=== PATIENT | female | born 1970 | race Caucasian/White ===

== ENCOUNTER 2017-01-11 11:19 | Emergency (ER) | payer MEDICAID ==
--- NOTE | 2017-01-11 14:38 | ED Physician Documentation ---
PD HPI NVD - Stated complaint Stated Complaint: VOMITING - Chief complaint Chief Complaint: Abd Pain - History obtained from History obtained from: Patient - History of Present Illness Timing - onset: Today (this morning, initially overnight with nausea and vomiting, and with some abd pain now too. Had eaten some raw fish yesterday and attributes this to that.) Timing - duration: Hours Timing - details: Abrupt onset, Still present Associated symptoms: Abdominal pain. No: Fever, Hematemesis, Melena, Near syncope / syncope Contributing factors: Bad food (possibly, attributing the current symptoms to some raw fish she had yesterday). No: Sick contact, Travel, Recent antibiotics Improved by: No: Eating, Vomiting Worsened by: Eating Similar symptoms before: Has not had sx before Recently seen: Not recently seen Review of Systems Constitutional: denies: Fever, Chills Nose: denies: Rhinorrhea / runny nose, Congestion Throat: denies: Sore throat Cardiac: denies: Chest pain / pressure Respiratory: denies: Cough GI: reports: Abdominal Pain, Nausea, Vomiting. denies: Diarrhea : denies: Dysuria, Frequency Skin: denies: Rash, Lesions Neurologic: reports: Generalized weakness. denies: Focal weakness, Numbness, Near syncope PD PAST MEDICAL HISTORY - Past Medical History Cardiovascular: None Respiratory: None Endocrine/Autoimmune: None GI: None : None HEENT: None Psych: None Musculoskeletal: None Derm: None - Past Surgical History Past Surgical History: Yes Ortho: Other - Present Medications Home Medications: Ambulatory Orders Medication Instructions Recorded Confirmed HYDROcod/ACETAM 5/325 [[place] 5/325] 1 tab PO Q6H PRN #15 tablet 01/11/17 Ondansetron Odt [Zofran] 4 mg TL Q6H PRN #15 tablet 01/11/17 - Allergies Allergies/Adverse Reactions: Allergies Allergy/AdvReac Type Severity Reaction Status Date / Time carbamazepine [From Tegretol] Allergy Unknown Rash Verified 03/22/16 09:37 iodine Allergy Unknown Hives Verified 03/22/16 09:37 prochlorperazine edisylate * Allergy Unknown seizure Verified 03/22/16 09:37 [From Compazine] prochlorperazine maleate * Allergy Unknown unknown Verified 03/22/16 09:37 [From Compazine] strawberry [[place]] Allergy Unknown Hives Verified 03/22/16 09:37 shellfish Allergy Unknown Hives Uncoded 03/22/16 09:37 - Social History Does the pt smoke?: No Smoking Status: Never smoker Does the pt drink ETOH?: No Does the pt have substance abuse?: No - Family History Family history: reports: Non contributory - Immunizations Immunizations are current?: No Immunizations: TDAP >10years/unknown, Other immun not current - POLST Patient has POLST: No PD ED PE NORMAL - Vitals Vital signs reviewed: Yes - General General: Alert and oriented X 3, No acute distress, Well developed/nourished - HEENT HEENT: Moist mucous membranes, Pharynx benign - Neck Neck: Supple, no meningeal sign, No adenopathy - Cardiac Cardiac: RRR, No murmur - Respiratory Respiratory: Clear bilaterally - Abdomen Abdomen: Normal bowel sounds, Soft, Non distended, No organomegaly, Other ( tender mid abdomen and some to RLQ without guarding, percussion nor rebound tenderness. ) - Female Female : Deferred - Rectal Rectal: Deferred - Back Back: No CVA TTP - Derm Derm: Normal color, Warm and dry - Extremities Extremities: No edema, No calf tenderness / cord - Neuro Neuro: Alert and oriented X 3, No motor deficit, Normal speech Results - Vitals Vitals: Oxygen O2 Source Room air - Labs Labs: Laboratory Tests 01/11/17 01/11/17 15:00 15:00 WBC 7.1 RBC 4.35 Hgb 13.2 Hct 38.5 MCV 88.6 MCH 30.2 MCHC 34.1 RDW 13.7 Plt Count 201 MPV 8.1 Neut # 4.6 Lymph # 1.4 L [place] # 0.4 Eos # 0.7 Baso # 0.1 Absolute Nucleated RBC 0.00 Nucleated RBCs 0.0 Sodium 136 Potassium 3.7 Chloride 102 Carbon Dioxide 29 Anion Gap 5.0 L BUN 11 Creatinine 0.6 Estimated GFR (MDRD) 107 Glucose 95 Calcium 9.1 Total Bilirubin 0.9 AST 25 ALT 22 Alkaline Phosphatase 62 Total Protein 7.3 Albumin 4.4 Globulin 2.9 Albumin/Globulin Ratio 1.5 Lipase 18 L PD MEDICAL DECISION MAKING - ED course Complexity details: reviewed results, re-evaluated patient (improved nausea and pain after fluids/meds. Recheck abd is still some tender lower abd, more to the right, but not peritoneal findings. Normal WBC and no fever. We discussed further eval such as imaging and shared decision was to hold on imaging and see how she does over the next 12-24 hours. ), considered differential, d/w patient Departure - Departure Disposition: 01 Home, Self Care Clinical Impression: Vomiting Qualifiers: Vomiting type: unspecified Vomiting Intractability: intractable Nausea presence : with nausea Qualified Code(s): R11.2 - Nausea with vomiting, unspecified Abdominal pain Qualifiers: Abdominal location: lower abdomen, unspecified Qualified Code(s): R10.30 - Lower abdominal pain, unspecified Condition: Stable Record reviewed to determine appropriate education?: Yes Instructions: ED Abdominal Pain Appendx Poss Prescriptions: HYDROcod/ACETAM 5/325 [[place] 5/325] 1 tab PO Q6H PRN #15 tablet PRN Reason: Pain Ondansetron Odt [Zofran] 4 mg TL Q6H PRN #15 tablet PRN Reason: Nausea / Vomiting Comments: Small frequent fluids. Ondansetron as needed for nausea. Tylenol if needed for pain. Add hydrocodone if needed for worse pain just for a day or so. If this were a viral illness or food related, I would expect symptoms to improve overnight into tomorrow. Watch for worsening pain, fevers, blood in vomit or stool, any other concerns. Recheck if not completely better in 24 hours. Discharge Date/Time: 01/11/17 17:30
[2017-01-11] MEDS ORDERED: SODIUM CHLORIDE 0.9% 1,000 ML IV ONE (15:03)
[2017-01-11] MEDS ORDERED: ONDANSETRON 4 MG/2 ML VIAL IVP STA (15:03)
[2017-01-11] MEDS ORDERED: FAMOTIDINE 20 MG/50 ML 50 ML IV ONE ×2 (15:08→15:16)
[2017-01-11] MEDS ORDERED: KETOROLAC 60 MG/2 ML VIAL IVP STA (15:09)
[2017-01-11] MEDS ORDERED: KETOROLAC 30 MG/ML VIAL ONE (15:16)
[2017-01-11] MEDS ORDERED: ONDANSETRON 4 MG/2 ML VIAL ONE (15:16)
[2017-01-11 15:19] LABS: BASOPHILS # (AUTO) 0.1 10^3/uL (0.0-0.1); BASOPHILS % (AUTO) 0.7 %; EOSINOPHILS # (AUTO) 0.7 10^3/uL (0.0-0.7); EOSINOPHILS % (AUTO) 9.6 %; HCT - HEMATOCRIT 38.5 % (37.0-47.0); HGB - HEMOGLOBIN 13.2 g/dL (12.0-16.0); LYMPHOCYTES # (AUTO) 1.4 10^3/uL (1.5-3.5); LYMPHOCYTES % (AUTO) 19.1 %; MEAN CORPUSCULAR HEMOGLOBIN 30.2 pg (27.0-31.0); MEAN CORPUSCULAR HGB CONC 34.1 g/dL (32.0-36.0); MEAN CORPUSCULAR VOLUME 88.6 fL (81.0-99.0); MEAN PLATELET VOLUME 8.1 fL (7.9-10.8); MONOCYTES # (AUTO) 0.4 10^3/uL (0.0-1.0); MONOCYTES % (AUTO) 5.6 %; NEUTROPHILS # (AUTO) 4.6 10^3/uL (1.5-6.6); RED BLOOD COUNT 4.35 10^6/uL (4.20-5.40); RED CELL DISTRIBUTION WIDTH 13.7 % (12.0-15.0); UNCORRECTED WHITE BLOOD COUNT 7.1 x10^3/uL; WHITE BLOOD COUNT 7.1 x10^3/uL (4.8-10.8)
[2017-01-11 15:29] LABS: ALBUMIN/GLOBULIN RATIO 1.5 (1.0-2.2); BILIRUBIN,TOTAL 0.9 mg/dL (0.2-1.0); CALCIUM 9.1 mg/dL (8.5-10.3); CREATININE 0.6 mg/dL (0.4-1.0); POTASSIUM 3.7 mmol/L (3.5-5.0); TOTAL PROTEIN 7.3 g/dL (6.7-8.2)
[2017-01-11] MEDS ORDERED: PROMETHAZINE INJ 12.5 MG in SODIUM CHLORIDE 0.9% 50 ML IV STA (15:37)
[2017-01-11] MEDS ORDERED: PROMETHAZINE 25 MG/1 ML VIAL ONE (15:52)
[2017-01-11] MEDS ORDERED: HYDROmorphone 1 MG/ML SYRINGE IVP STA (16:52)
[2017-01-11] MEDS ORDERED: HYDROmorphone 1 MG/ML SYRINGE ONE (17:06)
[2017-01-11 17:12] VITALS: BP 117/76
== END 2017-01-11 17:30 | disposition home or self-care (01) ==
LOC: ED 11:19
DX: R11.2 Nausea with vomiting, unspecified (principal); R10.31 Right lower quadrant pain
CPT/HCPCS: 36415; 80053; 83690; 85025; 96365; 96375; 99283; 99284; J1170; J7040

== ENCOUNTER 2017-01-16 15:27 | Emergency (ER) | payer MEDICAID ==
[2017-01-16] MEDS ORDERED: SODIUM CHLORIDE 0.9% 1,000 ML IV ONE (15:43)
[2017-01-16] MEDS ORDERED: HYDROmorphone 1 MG/ML CARPUJECT IVP STA (15:43)
[2017-01-16] MEDS ORDERED: ONDANSETRON 4 MG/2 ML VIAL IVP STA ×2 (15:43→19:07)
--- NOTE | 2017-01-16 15:46 | ED Physician Documentation ---
PD HPI ABD PAIN - Stated complaint Stated Complaint: VOMITTING - Chief complaint Chief Complaint: Abd Pain - History obtained from History obtained from: Patient - History of Present Illness Timing - onset: Other (46-year-old woman with 5 days now of nausea and vomiting and right lower quadrant pain. She was seen here, the day after it started. Her labs were unremarkable. She declined imaging at that time. She has persistent symptoms, never really got any better.) Review of Systems Ten Systems: 10 systems reviewed and negative Constitutional: denies: Fever, Chills Nose: denies: Rhinorrhea / runny nose, Congestion Cardiac: denies: Chest pain / pressure, Palpitations Respiratory: denies: Dyspnea, Cough GI: reports: Abdominal Pain, Nausea, Vomiting. denies: Constipation, Diarrhea PD PAST MEDICAL HISTORY - Past Medical History Past Medical History: No Cardiovascular: None Respiratory: None Endocrine/Autoimmune: None GI: None : None HEENT: None Psych: None Musculoskeletal: None Derm: None - Past Surgical History Past Surgical History: Yes Ortho: Other - Present Medications Home Medications: Ambulatory Orders Medication Instructions Recorded Confirmed HYDROcod/ACETAM 5/325 [[place] 5/325] 1 tab PO Q6H PRN #15 tablet 01/11/17 Ondansetron Odt [Zofran] 4 mg TL Q6H PRN #15 tablet 01/11/17 01/16/17 Ondansetron HCl [Zofran] 4 mg PO Q6H PRN #10 tablet 01/16/17 Peg 3350/Na Sulf,Bicarb,Cl/KCl 4,000 ml PO ONCE #1 bottle 01/16/17 [Golytely] - Allergies Allergies/Adverse Reactions: Allergies Allergy/AdvReac Type Severity Reaction Status Date / Time carbamazepine [From Tegretol] Allergy Unknown Rash Verified 03/22/16 09:37 iodine Allergy Unknown Hives Verified 03/22/16 09:37 prochlorperazine edisylate * Allergy Unknown seizure Verified 03/22/16 09:37 [From Compazine] prochlorperazine maleate * Allergy Unknown unknown Verified 03/22/16 09:37 [From Compazine] strawberry [[place]] Allergy Unknown Hives Verified 03/22/16 09:37 shellfish Allergy Unknown Hives Uncoded 03/22/16 09:37 - Social History Does the pt smoke?: No Smoking Status: Never smoker Does the pt drink ETOH?: No Does the pt have substance abuse?: No - Family History Family history: reports: Non contributory - Immunizations Immunizations are current?: No Immunizations: TDAP >10years/unknown, Other immun not current - POLST Patient has POLST: No PD ED PE NORMAL - Vitals Vital signs reviewed: Yes - General General: Alert and oriented X 3, No acute distress - HEENT HEENT: PERRL, EOMI, Other (Dry mucous membranes) - Neck Neck: Supple, no meningeal sign, No bony TTP - Cardiac Cardiac: RRR, No murmur - Respiratory Respiratory: No respiratory distress, Clear bilaterally - Abdomen Abdomen: Other (Thin with normal bowel sounds, focally tender in the right lower quadrant with positive Rovsing sign.) - Back Back: No CVA TTP, No spinal TTP - Derm Derm: Normal color, Warm and dry - Extremities Extremities: No edema, No calf tenderness / cord - Neuro Neuro: Alert and oriented X 3, Normal speech - Psych Psych: Normal mood, Normal affect Results - Vitals Vitals: Vital Signs - 24 hr 01/16/17 01/16/17 01/16/17 15:31 16:49 19:10 Temperature 36.6 C Heart Rate 86 88 75 Respiratory 17 18 18 Rate Blood Pressure 136/86 H 124/80 102/50 L O2 Saturation 97 100 100 Oxygen O2 Source Room air - Labs Labs: Laboratory Tests 01/16/17 01/16/17 01/16/17 15:55 15:55 17:07 WBC 7.7 RBC 4.23 Hgb 12.8 Hct 37.6 MCV 88.9 MCH 30.4 MCHC 34.2 RDW 13.5 Plt Count 202 MPV 8.1 Neut # 5.3 Lymph # 1.3 L [place] # 0.6 Eos # 0.5 Baso # 0.0 Absolute Nucleated RBC 0.00 Nucleated RBCs 0.0 Sodium 136 Potassium 4.1 Chloride 100 L Carbon Dioxide 27 Anion Gap 9.0 BUN 12 Creatinine 0.6 Estimated GFR (MDRD) 107 Glucose 112 H Calcium 9.3 Total Bilirubin 0.6 AST 30 ALT 25 Alkaline Phosphatase 58 Total Protein 7.3 Albumin 4.2 Globulin 3.1 Albumin/Globulin Ratio 1.4 Lipase 23 Urine Color YELLOW Urine Clarity CLEAR Urine pH 7.5 Ur Specific [place] 1.015 Urine Protein NEGATIVE Urine Glucose (UA) NEGATIVE Urine Ketones NEGATIVE Urine Occult Blood NEGATIVE Urine Nitrite NEGATIVE Urine Bilirubin NEGATIVE Urine Urobilinogen 0.2 (NORMAL) Ur Leukocyte Esterase NEGATIVE Ur Microscopic Review NOT INDICATED Urine Culture Comments NOT INDICATED Urine HCG, Qual NEGATIVE - Rads (name of study) CT A/P Radiology: EMP read contemporaneously (Normal appendix, large amount of stool, mild hydronephrosis, could be from stool load.) PD MEDICAL DECISION MAKING - ED course ED course: 46-year-old woman with now persistent nausea and vomiting with right lower quadrant pain for 5 days. She is tender in the right lower quadrant. She is quite thin will probably need contrast for the CT that I am ordering. She does have a listed allergy to iodine and this was explored, it sounds like during the era of free iodine she had hives, but was not otherwise a serious reaction. We will treat pretreated with Benadryl. She had no ill effects from the contrast. The CT did show evidence of severe constipation, potentially hydroureter related to same. She was administered IV fluids, Dulcolax, magnesium citrate. She requested discharge and will continue working on this at home. Departure - Departure Disposition: Home, Self Care Clinical Impression: Constipation Qualifiers: Constipation type: slow transit constipation Qualified Code(s): K59.01 - Slow transit constipation Abdominal pain Qualifiers: Abdominal location: generalized Qualified Code(s): R10.84 - Generalized abdominal pain Vomiting Qualifiers: Vomiting type: unspecified Vomiting Intractability: non-intractable Nausea presence: with nausea Qualified Code(s): R11.2 - Nausea with vomiting, unspecified Condition: Good Record reviewed to determine appropriate education?: Yes Instructions: ED Constipation Prescriptions: Peg 3350/Na Sulf,Bicarb,Cl/KCl [[place]] 4,000 ml PO ONCE #1 bottle Ondansetron HCl [Zofran] 4 mg PO Q6H PRN #10 tablet PRN Reason: Nausea / Vomiting Comments: Call your doctor to arrange a follow-up appointment, make the next available appointment. In the interim, return anytime if worse or if new symptoms develop.
[2017-01-16] MEDS ORDERED: IOPAMIDOL-300 50 ML VIAL ONE (15:53)
[2017-01-16] MEDS ORDERED: diphenhydrAMINE INJ 50 MG/ML VIAL IVP STA (16:05)
[2017-01-16 16:08] LABS: BASOPHILS % (AUTO) 0.6 %; EOSINOPHILS # (AUTO) 0.5 10^3/uL (0.0-0.7); EOSINOPHILS % (AUTO) 6.2 %; HCT - HEMATOCRIT 37.6 % (37.0-47.0); HGB - HEMOGLOBIN 12.8 g/dL (12.0-16.0); LYMPHOCYTES # (AUTO) 1.3 10^3/uL (1.5-3.5); LYMPHOCYTES % (AUTO) 16.7 %; MEAN CORPUSCULAR HEMOGLOBIN 30.4 pg (27.0-31.0); MEAN CORPUSCULAR HGB CONC 34.2 g/dL (32.0-36.0); MEAN CORPUSCULAR VOLUME 88.9 fL (81.0-99.0); MEAN PLATELET VOLUME 8.1 fL (7.9-10.8); MONOCYTES # (AUTO) 0.6 10^3/uL (0.0-1.0); MONOCYTES % (AUTO) 7.6 %; NEUTROPHILS # (AUTO) 5.3 10^3/uL (1.5-6.6); NEUTROPHILS % (AUTO) 68.9 %; RED BLOOD COUNT 4.23 10^6/uL (4.20-5.40); RED CELL DISTRIBUTION WIDTH 13.5 % (12.0-15.0); UNCORRECTED WHITE BLOOD COUNT 7.7 x10^3/uL; WHITE BLOOD COUNT 7.7 x10^3/uL (4.8-10.8)
[2017-01-16] MEDS ORDERED: ONDANSETRON 4 MG/2 ML VIAL ONE ×2 (16:08→19:15)
[2017-01-16] MEDS ORDERED: HYDROmorphone 1 MG/ML CARPUJECT ONE (16:08)
[2017-01-16 16:17] LABS: ALBUMIN/GLOBULIN RATIO 1.4 (1.0-2.2); BILIRUBIN,TOTAL 0.6 mg/dL (0.2-1.0); CALCIUM 9.3 mg/dL (8.5-10.3); CREATININE 0.6 mg/dL (0.4-1.0); POTASSIUM 4.1 mmol/L (3.5-5.0); TOTAL PROTEIN 7.3 g/dL (6.7-8.2)
[2017-01-16] MEDS ORDERED: PROMETHAZINE INJ 25 MG in SODIUM CHLORIDE 0.9% 50 ML IV STA (16:48)
[2017-01-16] MEDS ORDERED: diphenhydrAMINE INJ 50 MG/ML VIAL ONE (16:51)
[2017-01-16] MEDS ORDERED: PROMETHAZINE 25 MG/1 ML VIAL ONE (17:00)
[2017-01-16 17:13] LABS: BILIRUBIN,URINE NEGATIVE (NEGATIVE); PH,URINE 7.5 PH (5.0-7.5)
[2017-01-16 17:19] LABS: HCG UR QUAL NEGATIVE; UA CHARGE (STRIP ONLY) YES; UR CULTURE IF IND NOT INDICATED
[2017-01-16] MEDS ORDERED: IOPAMIDOL-300 100 ML VIAL ONE (17:41)
[2017-01-16] MEDS ORDERED: IOPAMIDOL-300 100 ML VIAL IVP ONE (18:08)
[2017-01-16] MEDS ORDERED: IOPAMIDOL-300 50 ML VIAL PO ONE (18:20)
--- NOTE | 2017-01-16 19:00 | CT Preliminary Report ---
Exam: CT Abdomen/Pelvis W/ IMPRESSION: 1. Normal appendix. 2. Very small amount of free fluid seen in the posterior pelvis. 3. Moderate to large amount of stool noted in the colon diffusely. 4. Mild bilateral hydronephrosis, definite cause is not seen, could be from mass effect due to the la rge amount of stool volume. [facility] SITE ID: [id number]
--- NOTE | 2017-01-16 19:03 | CT Report ---
EXAM: CT ABDOMEN AND PELVIS EXAM DATE: 01/16/2017 06:20 PM. CLINICAL HISTORY: Right lower quadrant pain and vomiting COMPARISONS: None. TECHNIQUE: Routine helical CT imaging was performed through the abdomen and pelvis. IV contrast: 100 mL Omnipaque 300. Enteric contrast: Yes. Reconstructions: Coronal and sagittal. In accordance with CT protocol optimization, one or more of the following dose reduction techniques w ere utilized for this exam: automated exposure control, adjustment of mA and/or KV based on patient s ize, or use of iterative reconstructive technique. FINDINGS: Lung Bases: Motion artifact limited. No acute findings seen. Liver: Normal. No masses. Gallbladder/Bile Ducts: Unremarkable. Spleen: Normal. Pancreas: Normal. Adrenal Glands: Normal. Kidneys: Mild bilateral hydronephrosis. Peritoneal Cavity/Bowel: Normal appendix. Moderate to large amount of stool noted in the colon diffus arvin. No evidence for bowel obstruction. No free air or pneumatosis seen. Very small amount of free fl uid seen in the posterior pelvis. No evidence for abscess. Pelvic Organs: Normal. The bladder and visualized pelvic organs are within normal limits. Vasculature: No acute findings. Bones: No acute bone findings. IMPRESSION: 1. Normal appendix. 2. Very small amount of free fluid seen in the posterior pelvis. 3. Moderate to large amount of stool noted in the colon diffusely. 4. Mild bilateral hydronephrosis, definite cause is not seen, could be from mass effect due to the la rge amount of stool volume. [facility] Referring Provider Line: [phone] SITE ID: [id number]
[2017-01-16] MEDS ORDERED: BISACODYL 5 MG TABLET PO STA (19:21)
[2017-01-16] MEDS ORDERED: MAGNESIUM CITRATE 296 ML BOTTLE PO STA (19:21)
[2017-01-16] MEDS ORDERED: BISACODYL 5 MG TABLET PO ONE (19:45)
[2017-01-16] MEDS ORDERED: MAGNESIUM CITRATE 296 ML BOTTLE ONE (19:46)
[2017-01-16] MEDS ORDERED: ONDANSETRON ODT 4 MG Prepack 2 TL STA (20:48)
[2017-01-16] MEDS ORDERED: ONDANSETRON ODT 4 MG Prepack 2 TL ONE (21:00)
[2017-01-16 21:04] VITALS: BP 115/73
== END 2017-01-16 21:12 | disposition home or self-care (01) ==
LOC: ED 15:27
DX: K59.01 Slow transit constipation (principal); R10.84 Generalized abdominal pain; R11.2 Nausea with vomiting, unspecified
CPT/HCPCS: 36415; 74177; 80053; 81003; 81025; 83690; 85025; 96374; 96375; 96376; 99283; A9270; J1170; J7040; Q9967; 81001; 87086

== ENCOUNTER 2017-07-03 18:14 | Emergency (ER) | payer MEDICAID ==
[2017-07-03] MEDS ORDERED: ONDANSETRON ODT 4 MG TABLET TL STA (19:26)
--- NOTE | 2017-07-03 20:11 | ED Physician Documentation ---
PD HPI HEAD INJURY - Stated complaint Stated Complaint: GLF/NOSE INJ - Chief complaint Chief Complaint: General - History obtained from History obtained from: Patient - History of Present Illness Mechanism of head injury: Fell Where head injury occurred: Home Timing - onset: Enter time (17:00) Location of injury: Other (nose) Quality of pain: Pain, Throbbing, Aching Associated symptoms: No: LOC, AMS, Amnesia, Nausea / vomiting, Neck pain, Paresthesias Symptoms worsen with: Palpation Contributing factors: No: Anticoagulated, Intoxicated Similar symptoms before: Has not had sx before Recently seen: Not recently seen - Additional information Additional information: at 5 PM today, fell outside while walking, was carrying a full bucket when her dog suddenly got loose; she tripped as she was trying to get her dog back into the house Review of Systems Eyes: reports: Reviewed and negative Ears: reports: Reviewed and negative Nose: reports: Epistaxis. denies: Sinus pressure / pain Throat: denies: Dental pain / toothache Musculoskeletal: denies: Neck pain Neurologic: reports: Head injury. denies: Generalized weakness, Focal weakness , Numbness, Confused, Altered mental status, Headache, LOC PD PAST MEDICAL HISTORY - Past Medical History Cardiovascular: None Respiratory: None Endocrine/Autoimmune: None GI: None : None HEENT: None Psych: None Musculoskeletal: None Derm: None - Past Surgical History Past Surgical History: Yes Ortho: Other - Present Medications Home Medications: Ambulatory Orders Medication Instructions Recorded Confirmed oxyCODONE/ACET 5/325 [Percocet 5 1 - 2 each PO Q6H PRN #20 tablet 07/03/18 mg/325 mg] - Allergies Allergies/Adverse Reactions: Allergies Allergy/AdvReac Type Severity Reaction Status Date / Time carbamazepine [From Tegretol] Allergy Unknown Rash Verified 03/22/16 09:37 iodine Allergy Unknown Hives Verified 03/22/16 09:37 prochlorperazine edisylate * Allergy Unknown seizure Verified 03/22/16 09:37 [From Compazine] prochlorperazine maleate * Allergy Unknown unknown Verified 03/22/16 09:37 [From Compazine] strawberry [[place]] Allergy Unknown Hives Verified 03/22/16 09:37 shellfish Allergy Unknown Hives Uncoded 03/22/16 09:37 - Social History Does the pt smoke?: No Smoking Status: Never smoker Does the pt drink ETOH?: No Does the pt have substance abuse?: No - Immunizations Immunizations are current?: No Immunizations: TDAP >10years/unknown, Other immun not current - POLST Patient has POLST: No PD ED PE NORMAL - Vitals Vital signs reviewed: Yes - General General: Alert and oriented X 3, No acute distress, Well developed/nourished - HEENT HEENT: PERRL, EOMI, Ears normal, Moist mucous membranes, Dentition benign - Neck Neck: No bony TTP - Extremities Extremities: No deformity, Normal ROM s pain - Neuro Neuro: Alert and oriented X 3, 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 no septal hematoma bilaterally. no facial bony tenderness except for nasal bridge ( no sinus, supraorbital, infraorbital tenderness, crepitus, or deformity)) HEENT Visual: 1 - swelling, tenderness 2 - laceration (0.5 cm linear) Results - Vitals Vitals: Oxygen O2 Source Room air Procedures - Laceration (location) Nose Length in cm: 0.5 Wound type: Linear Neurovascular status: Sensory intact, Motor intact, Vascular intact Skin layer closure: Dermabond Other: Patient tolerated well, No complications, Tetanus booster given Complexity: Simple PD MEDICAL DECISION MAKING - ED course Complexity details: considered differential, d/w patient Departure - Departure Disposition: 01 Home, Self Care Clinical Impression: Fall, Nasal injury, Nasal laceration Condition: Good Instructions: ED Contusion Nasal Vs Fx No X Ray, ED Head Injury Closed, ED Laceration Facial Skin Glue Prescriptions: oxyCODONE/ACET 5/325 [Percocet 5 mg/325 mg] 1 - 2 each PO Q6H PRN #20 tablet PRN Reason: Pain Discharge Date/Time: 07/03/17 20:49
[2017-07-03] MEDS ORDERED: oxyCOD/ACETAMIN 5 MG/325 MG TABLET PO STA (20:29)
[2017-07-03] MEDS ORDERED: oxyCODONE/ACET 5/325 Prepack 4 PO STA (20:29)
[2017-07-03] MEDS ORDERED: TETANUS/DIPHTHERIA/PERTUSSIS 0.5 ML SYRINGE IM ONE (20:29)
[2017-07-03 20:40] VITALS: BP 124/87
== END 2017-07-03 20:49 | disposition home or self-care (01) ==
LOC: ED 18:14
DX: S01.21XA Laceration without foreign body of nose, initial encounter (principal); W01.0XXA Fall on same level from slipping, tripping and stumbling without subsequent striking against object, initial encounter; Y93.01 Activity, walking, marching and hiking; Y92.007 Garden or yard of unspecified non-institutional (private) residence as the place of occurrence of the external cause; Z23 Encounter for immunization
CPT/HCPCS: 12011; 90471; 90715; 99283; A9270; Q0162

== ENCOUNTER 2017-12-09 16:58 | Emergency (ER) | payer MEDICAID ==
[2017-12-09 17:07] VITALS: BP 107/63
--- NOTE | 2017-12-09 17:23 | ED Physician Documentation ---
History of Present Illness - Stated complaint Stated Complaint: POSSIBLE PROLAPSE/FEM - Chief complaint Chief Complaint: General - History obtained from History obtained from: Patient - History of Present Illness Timing: Other (This is a fairly slight lady whose had 9 large children all by vag delivery. She feels like for the last month or so she has had uterine prolapse, but initially she was able to push it back in. Over the last few days she is not able to push it out and now she feels like she has urinary retention.) Review of Systems Ten Systems: 10 systems reviewed and negative Constitutional: reports: Reviewed and negative Cardiac: reports: Reviewed and negative GI: reports: Reviewed and negative PD PAST MEDICAL HISTORY - Past Medical History Past Medical History: No Cardiovascular: None Respiratory: None Endocrine/Autoimmune: None GI: None : None HEENT: None Psych: None Musculoskeletal: None Derm: None - Past Surgical History Past Surgical History: Yes Ortho: Other - Present Medications Home Medications: Ambulatory Orders Medication Instructions Recorded Confirmed oxyCODONE/ACET 5/325 [Percocet 5 1 - 2 each PO Q6H PRN #20 tablet 07/03/17 mg/325 mg] HYDROcod/ACETAM 5/325 [[place] 5/325] 1 - 2 ea PO Q6H PRN #15 tablet 12/09/17 - Allergies Allergies/Adverse Reactions: Allergies Allergy/AdvReac Type Severity Reaction Status Date / Time carbamazepine [From Tegretol] Allergy Unknown Rash Verified 12/09/17 17:07 iodine Allergy Unknown Hives Verified 12/09/17 17:07 prochlorperazine edisylate * Allergy Unknown seizure Verified 12/09/17 17:07 [From Compazine] prochlorperazine maleate * Allergy Unknown unknown Verified 12/09/17 17:07 [From Compazine] strawberry [[place]] Allergy Unknown Hives Verified 12/09/17 17:07 shellfish Allergy Unknown Hives Uncoded 03/22/16 09:37 - Social History Does the pt smoke?: No Smoking Status: Never smoker Does the pt drink ETOH?: No Does the pt have substance abuse?: No - Family History Family history: reports: Non contributory - Immunizations Immunizations are current?: No Immunizations: TDAP >10years/unknown, Other immun not current - POLST Patient has POLST: No PD ED PE NORMAL - Vitals Vital signs reviewed: Yes - General General: Alert and oriented X 3, No acute distress - HEENT HEENT: PERRL, EOMI - Neck Neck: Supple, no meningeal sign, No bony TTP - Cardiac Cardiac: RRR, No murmur - Respiratory Respiratory: No respiratory distress, Clear bilaterally - Abdomen Abdomen: Soft, Non tender - 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 Straight UA cath done during exam and 400ml out.) - Back Back: No CVA TTP, No spinal TTP - Derm Derm: Normal color, No rash - Extremities Extremities: No edema, No calf tenderness / cord - Neuro Neuro: Alert and oriented X 3, Normal speech - Psych Psych: Normal mood, Normal affect Results - Vitals Vitals: Vital Signs - 24 hr 12/09/17 17:04 Temperature 36.9 C Heart Rate 59 L Respiratory 16 Rate Blood Pressure 107/63 O2 Saturation 96 Oxygen O2 Source Room air - Labs Labs: Laboratory Tests 12/09/17 17:35 Urine Color YELLOW Urine Clarity CLEAR Urine pH 6.5 Ur Specific [place] 1.015 Urine Protein NEGATIVE Urine Glucose (UA) NEGATIVE Urine Ketones NEGATIVE Urine Occult Blood NEGATIVE Urine Nitrite NEGATIVE Urine Bilirubin NEGATIVE Urine Urobilinogen 0.2 (NORMAL) Ur Leukocyte Esterase NEGATIVE Ur Microscopic Review NOT INDICATED Urine Culture Comments NOT INDICATED Urine HCG, Qual NEGATIVE PD MEDICAL DECISION MAKING - ED course ED course: 47-year-old woman with reducible uterine prolapse and associated urinary retention. Although the prolapse is easily reducible, and immediately pops right back out. The on-call medical facilities section director, Dr. Dooley was consulted and he will arrange for her to be seen in the clinic tomorrow and recommends a Ahumada in the interim. - Sepsis Event Vital Signs: Vital Signs - 24 hr 12/09/17 17:04 Temperature 36.9 C Heart Rate 59 L Respiratory 16 Rate Blood Pressure 107/63 O2 Saturation 96 Oxygen O2 Source Room air Departure - Departure Disposition: 01 Home, Self Care Clinical Impression: Uterine prolapse, Urinary retention Condition: Good Record reviewed to determine appropriate education?: Yes Instructions: Prolapse Surg Pelvic Organ, Leg Bag Care Dc Follow-Up: Kaylee Fernández, [Provider Admit Priv/Credential] - (THEY SHOULD CALL YOU TOMORROW AM- CALL THEM BY 9:30AM IF YOU HAVE NOT HEARD FROM THEM!) Prescriptions: HYDROcod/ACETAM 5/325 [[place] 5/325] 1 - 2 ea PO Q6H PRN #15 tablet PRN Reason: Pain Forms: Activity restrictions
[2017-12-09 17:42] LABS: BILIRUBIN,URINE NEGATIVE (NEGATIVE); GLUCOSE, URINE (UA) NEGATIVE (NEGATIVE); KETONES,URINE (UA) NEGATIVE (NEGATIVE); LEUKOCYTE ESTERASE, URINE NEGATIVE (NEGATIVE); NITRITE,URINE NEGATIVE (NEGATIVE); OCCULT BLOOD,URINE NEGATIVE (NEGATIVE); PH,URINE 6.5 PH (5.0-7.5); PROTEIN,URINE NEGATIVE (NEGATIVE); UROBILINOGEN,URINE 0.2 (NORMAL) E.U./dL (NORMAL)
[2017-12-09 17:45] LABS: CLARITY,URINE CLEAR (CLEAR); HCG UR QUAL NEGATIVE
[2017-12-09] MEDS ORDERED: HYDROcod/ACETAM 5/325 MG TABLET PO STA (18:02)
== END 2017-12-09 18:25 | disposition home or self-care (01) ==
LOC: ED 16:58
DX: N81.4 Uterovaginal prolapse, unspecified (principal); R33.9 Retention of urine, unspecified
CPT/HCPCS: 51702; 81003; 81025; 99283; A9270; 81001; 87086

== ENCOUNTER 2017-12-13 21:11 | Outpatient (CLI) | payer MEDICAID ==
--- NOTE | 2017-12-14 01:23 | Ultrasound Report ---
Procedure Date: 12/13/2017 Accession Number: [id number] / [id number] Procedure: US - Pelvic Complete CPT Code: FULL RESULT: EXAM: PELVIC ULTRASOUND EXAM DATE: 12/13/2017 10:10 PM. CLINICAL HISTORY: COMPLETE UTEROVAGINAL PROLAPSE. COMPARISON: None. TECHNIQUE: Realtime transabdominal pelvic scan performed with static image documentation. FINDINGS: Uterus: 8.3 x 3.4 x 4.8 cm, volume 70 cc. Anteverted position. Normal overall size and echotexture. Masses: None. Endometrium: 5 mm. Normal. Cervix: Unremarkable. Right Ovary: Not seen due to bowel gas. left Ovary: Not seen due to bowel gas. free Fluid: None. Other: Ahumada catheter in the urinary bladder. IMPRESSION: 1. Uterus is unremarkable. 2. Ovaries were not seen due to bowel gas. [facility]
== END 2017-12-13 21:12 | disposition home or self-care (01) ==
LOC: DI 21:11
PROVIDERS: ATTEND Obstetrics & Gynecology
DX: N81.3 Complete uterovaginal prolapse (principal)
CPT/HCPCS: 76856

== ENCOUNTER 2017-12-16 10:51 | Outpatient (CLI) | payer MEDICAID ==
[2017-12-16 11:08] LABS: BASOPHILS # (AUTO) 0.1 10^3/uL (0.0-0.1); EOSINOPHILS # (AUTO) 0.3 10^3/uL (0.0-0.7); EOSINOPHILS % (AUTO) 6.4 %; HGB - HEMOGLOBIN 12.1 g/dL (12.0-16.0); LYMPHOCYTES # (AUTO) 1.5 10^3/uL (1.5-3.5); LYMPHOCYTES % (AUTO) 27.6 %; MEAN CORPUSCULAR HEMOGLOBIN 30.9 pg (27.0-31.0); MEAN CORPUSCULAR HGB CONC 34.6 g/dL (32.0-36.0); MEAN CORPUSCULAR VOLUME 89.3 fL (81.0-99.0); MEAN PLATELET VOLUME 7.9 fL (7.9-10.8); MONOCYTES # (AUTO) 0.5 10^3/uL (0.0-1.0); MONOCYTES % (AUTO) 9.6 %; NEUTROPHILS # (AUTO) 2.9 10^3/uL (1.5-6.6); NEUTROPHILS % (AUTO) 55.4 %; PLT - PLATELET COUNT 253 10^3/uL (130-450); RED BLOOD COUNT 3.93 10^6/uL (4.20-5.40); RED CELL DISTRIBUTION WIDTH 13.6 % (12.0-15.0); WHITE BLOOD COUNT 5.3 x10^3/uL (4.8-10.8)
[2017-12-16 11:12] LABS: HCG UR QUAL NEGATIVE
[2017-12-16 11:16] LABS: ALBUMIN 3.8 g/dL (3.2-5.5); ALBUMIN/GLOBULIN RATIO 1.2 (1.0-2.2); BILIRUBIN,TOTAL 0.5 mg/dL (0.2-1.0); CALCIUM 8.7 mg/dL (8.5-10.3); CREATININE 0.9 mg/dL (0.4-1.0)
== END 2017-12-16 10:52 | disposition home or self-care (01) ==
LOC: LAB 10:51
PROVIDERS: ATTEND Obstetrics & Gynecology
DX: Z01.812 Encounter for preprocedural laboratory examination (principal); N81.6 Rectocele; N81.4 Uterovaginal prolapse, unspecified
CPT/HCPCS: 36415; 80053; 81025; 85025

== ENCOUNTER 2017-12-22 07:37 | Inpatient (IN) | payer MEDICAID ==
--- NOTE | 2017-12-22 07:25 | ANESTHESIA ---
Pre-Anesthesia VS, & Labs - Diagnosis Uterine prolapse - Procedure Lap assisted vaginal hysterectomy Height 5 ft 6 in Body Mass Index 17.2 - NPO >8 hours - Is Patient ?: No - Lab Results Lab results reviewed: Yes Home Medications and Allergies Home Medications: Ambulatory Orders Medication Instructions Recorded Confirmed oxyCODONE/ACET 5/325 [Percocet 5 1 - 2 each PO Q6H PRN #20 tablet 07/03/17 mg/325 mg] HYDROcod/ACETAM 5/325 [[place] 5/325] 1 - 2 ea PO Q6H PRN #15 tablet 12/09/17 Allergies/Adverse Reactions: Allergies Allergy/AdvReac Type Severity Reaction Status Date / Time carbamazepine [From Tegretol] Allergy Unknown Rash Verified 12/09/17 17:07 iodine Allergy Unknown Hives Verified 12/09/17 17:07 prochlorperazine edisylate * Allergy Unknown seizure Verified 12/09/17 17:07 [From Compazine] prochlorperazine maleate * Allergy Unknown unknown Verified 12/09/17 17:07 [From Compazine] strawberry [[place]] Allergy Unknown Hives Verified 12/09/17 17:07 shellfish Allergy Unknown Hives Uncoded 03/22/16 09:37 Anes History & Medical History - Anesthetic History Anesthesia Complications: reports: Post-Operative Nausea/Vomiting Family history of Anesthesia Complications: Denies Family history of Malignant Hyperthermia: Denies - Medical History Cardiovascular: reports: None Pulmonary: reports: None Gastrointestinal: reports: None Urinary: reports: None, Indwelling catheter Neuro: reports: None Musculoskeletal: reports: None Endocrine/Autoimmune: reports: None Blood Disorders: reports: None Skin: reports: None Smoking Status: Former smoker - Surgical History Orthopedic: Carpal Tunnel surgery, Other Exam General: Alert Dental: WNL Mouth Opening: Greater than 4 Fingerbreadths Neck Mobility: Normal Mallampati classification: II Thyromental Distance: greater than 6 cm Respiratory: Lungs clear Cardiovascular: Regular rate, No murmurs Mental/Cognitive Status: Alert/Oriented X3 Cognitive Status: Within normal limits Plan Anesthesia Type: General Consent for Procedure(s) Verified and Reviewed: Yes Code Status: Attempt Resuscitation ASA classification: 2-Mild systemic disease Is this case an emergency?: No
[~2017-12-22 07:37] MED LIST: LACTATED RINGERS 1,000 ML IV ONE; ceFAZolin 2 GM/50 ML 2 GM/50 ML BAG IV ONE
[2017-12-22 07:54] LABS: HCG UR QUAL NEGATIVE
[2017-12-22] MEDS ORDERED: fentaNYL 100 MCG/2 ML VIAL IVP ONE (14:05)
[2017-12-22] MEDS ORDERED: FUROSEMIDE 40 MG/4 ML VIAL IVP ONE (14:05)
[2017-12-22] MEDS ORDERED: NEOSTIGMINE 1 MG/1 ML 10 ML MDV IVP ONE (14:05)
[2017-12-22] MEDS ORDERED: LIDOCAINE-MPF 2% 5 ML VIAL IM ONE (14:05)
[2017-12-22] MEDS ORDERED: ePHEDrine 50 MG/ML VIAL IVP ONE (14:05)
[2017-12-22] MEDS ORDERED: PROPOFOL 200 MG/20 ML VIAL IVP ONE (14:05)
[2017-12-22] MEDS ORDERED: ceFAZolin 2 GM/50 ML 2 GM/50 ML BAG IV ONE (14:05)
[2017-12-22] MEDS ORDERED: ONDANSETRON 4 MG/2 ML VIAL IVP ONE (14:05)
[2017-12-22] MEDS ORDERED: MIDAZOLAM 2 MG/2 ML VIAL IVP ONE (14:05)
[2017-12-22] MEDS ORDERED: METHYLENE BLUE 0.5% 50 MG/10 ML AMPULE IVP ONE (14:05)
[2017-12-22] MEDS ORDERED: GLYCOPYRROLATE 1 MG/5 ML VIAL IVP ONE (14:05)
[2017-12-22] MEDS ORDERED: DEXAMETHASONE 4 MG/ML VIAL IVP ONE (14:05)
[2017-12-22] MEDS ORDERED: ROCURONIUM 50 MG/5 ML VIAL IVP ONE (14:05)
[2017-12-22] MEDS ORDERED: SODIUM CHLORIDE 0.9% 10 ML VIAL IV ONE (14:05)
[2017-12-22] MEDS ORDERED: PHENYLEPHRINE 50 MG/5 ML VIAL IV ONE (14:05)
[2017-12-22] MEDS ORDERED: BUPIVACAINE 0.25%-EPI 1:200000 PF 30 ML VIAL ONE ×2 (14:15→15:17)
[2017-12-22] MEDS ORDERED: BUPIVACAINE 0.25%-EPI 1:200000 PF 30 ML VIAL SUBQ ONE ×2 (14:22→15:21)
[2017-12-22] MEDS ORDERED: LACTATED RINGERS 1,000 ML IV ONE ×2 (14:28→15:03)
[2017-12-22] MEDS ORDERED: METHYLENE BLUE 0.5% 50 MG/10 ML AMPULE ONE ×3 (16:33→18:13)
[2017-12-22] MEDS ORDERED: SODIUM CHLORIDE 0.9% 1,000 ML IV ONE (17:05)
[2017-12-22] MEDS ORDERED: ESTROGENS, CONJUGATED CREAM 30 GM TUBE ONE (18:24)
[2017-12-22] MEDS: HYDROmorphone 1 MG/ML CARPUJECT ONE ×3 (19:13→19:27)
[2017-12-22] MEDS ORDERED: ONDANSETRON 4 MG/2 ML VIAL ONE (20:00)
[2017-12-22] MEDS ORDERED: HYDROmorphone 0.5 MG/0.5 ML SYRINGE ONE (20:16)
[2017-12-22] MEDS: HYDROmorphone 0.5 MG/0.5 ML SYRINGE IVP PRN ×3 (21:56→23:28)
[2017-12-22] MEDS: SODIUM CHLORIDE 0.9% 1,000 ML IV SCH (21:57)
[2017-12-22] MEDS ORDERED: SODIUM CHLORIDE FLUSH 0.9% 10 ML SYRINGE ONE (23:25)
[2017-12-23] MEDS: HYDROmorphone 0.5 MG/0.5 ML SYRINGE IVP PRN ×11 (00:15→10:07)
[2017-12-23] MEDS: oxyCODONE 5 MG TABLET PO PRN ×2 (00:48→07:37)
[2017-12-23] MEDS: ONDANSETRON 4 MG/2 ML VIAL IVP PRN ×3 (00:48→16:08)
[2017-12-23] MEDS: IBUPROFEN 600 MG TABLET PO PRN ×2 (00:58→07:38)
[2017-12-23 02:20] LABS: MEAN CORPUSCULAR HEMOGLOBIN 30.5 pg (27.0-31.0); MEAN CORPUSCULAR HGB CONC 34.2 g/dL (32.0-36.0); MEAN CORPUSCULAR VOLUME 89.4 fL (81.0-99.0); MEAN PLATELET VOLUME 7.8 fL (7.9-10.8); RED BLOOD COUNT 3.28 10^6/uL (4.20-5.40); RED CELL DISTRIBUTION WIDTH 13.2 % (12.0-15.0); WHITE BLOOD COUNT 10.2 x10^3/uL (4.8-10.8)
[2017-12-23 02:40] LABS: ALBUMIN/GLOBULIN RATIO 1.3 (1.0-2.2); BILIRUBIN,TOTAL 0.5 mg/dL (0.2-1.0); CALCIUM 7.9 mg/dL (8.5-10.3); CREATININE 0.7 mg/dL (0.4-1.0); TOTAL PROTEIN 5.4 g/dL (6.7-8.2)
[2017-12-23] MEDS ORDERED: SODIUM CHLORIDE FLUSH 0.9% 10 ML SYRINGE ONE ×2 (04:45→08:29)
--- NOTE | 2017-12-23 06:13 | OPERATIVE REPORT ---
DATE OF SERVICE: 12/22/2017 Physician: Isaac Dooley MD PREOPERATIVE DIAGNOSES 1. Grade 4 cystocele with obstruction. 2. Grade 2 rectocele. 3. Uterine prolapse. POSTOPERATIVE DIAGNOSES 1. Grade 4 cystocele with obstruction of the bladder. 2. Grade 2 rectocele. 3. Uterine prolapse. PROCEDURES PERFORMED 1. Laparoscopic-assisted vaginal hysterectomy with bilateral salpingectomy. 2. Anterior and posterior repair. 3. Sacrospinous ligament suspension. 4. Cystoscopy. 5. Takedown of anterior repair. SURGEON: Isaac Dooley MD. NEWS CLERK: Isaac Bernal MD. ANESTHESIA: General via endotracheal tube. FINDINGS 1. Large cystocele. 2. Large rectocele. 3. Uterine prolapse. COMPLICATIONS: Ureteral obstruction, treated with takedown of anterior repair. ESTIMATED BLOOD LOSS: 200 mL. SPECIMEN TO PATHOLOGY: Uterus and tubes. OPERATIVE PROCEDURE: Following adequate endotracheal anesthesia, the patient was placed in the supine position in Norris stirrups. At this point, she was prepped and draped in the usual fashion. A timeout was performed, at which time the concerns were discussed. The concern about her bladder being highly distended was reviewed, and the need to make sure we did a cystoscopy to make sure she had ureteral patency at the end of the procedure. At this point, she was prepped and draped in the usual fashion. A speculum was placed in the vagina. The cervix was visualized, grasped with a single-tooth tenaculum then dilated up to a size 8-mm Hegar dilator and then a HUMI uterine manipulator was placed. A stab wound was made in the subumbilical area with a # 15 blade following local anesthesia with 0.25% Marcaine with epinephrine. A 5- mm trocar and sheath were placed under direct visualization with the laparoscope. The abdomen was insufflated with carbon dioxide and two additional ports were placed, both in the left and right lower quadrants following local anesthesia with 0.25% Marcaine with epinephrine. Both of these were placed under direct visualization. The pelvis was inspected. There was evidence of adhesions to the right anterior abdominal wall. This was taken down with a LigaSure. Attention was then turned to the pelvis. The left fallopian tube was grasped and then the mesosalpinx was cauterized and transected with the LigaSure. This was carried all the way down to the cornu and then the utero-ovarian ligament, as well as the round ligament was cauterized and transected. The broad ligament was then transected and cauterized all the way down to the internal os of the cervix. Then, utilizing the LigaSure, the bladder flap was developed using the LigaSure. The bladder was pushed off the lower cervical segment. The uterine vessels on the left hand side were cauterized and transected. The attention was turned to the right-hand side. The tube was grasped, the mesosalpinx cauterized, transected, all the way to the cornu. The round ligament was doubly ligated, transected, and then the anterior leaf of the broad ligament was cauterized and transected with LigaSure. This was carried down all the way to the bladder. The posterior leaf was likewise cauterized and transected all the way to the internal os of the cervix. The uterine vessels were then cauterized and transected. There was some oozing noted from the left-hand side , from the specimen side. This was treated with LigaSure. The bladder was pushed off the lower uterine segment. At this point, the procedure was approached from the vagina. A weighted speculum was placed in the posterior vagina as well as a narrow Trang. Cervix was visualized, grasped with thyroid Martha clamps, both anterior and posteriorly. The cervix was circumscribed with electrocautery. This was carried all the way around. At this point, the posterior cul-de-sac was entered using Dozier scissors. The uterosacral ligaments were grasped with Sae clamps. Pedicles were developed using Dozier scissors and these were ligated with Sae stitches of 0 Vicryl. These sutures were grasped with straight clamps. The bladder was pushed off the lower cervix and the peritoneal cavity was entered. The cervix was then clamped with Sae clamps. Pedicles were developed using Dozier scissors and then these were ligated with Sae stitches of 0 Vicryl. Care was taken to place these as close to the cervix as possible to decrease the risk of injury to the ureters. The uterus was then extirpated. The pedicles were inspected for bleeding; none was noted. The uterosacral ligaments were both injected with 10 mL of 0.25% Marcaine with epinephrine. A running locking suture was placed across the posterior cervical cuff for hemostasis. A pursestring of Monocryl was then placed, including the anterior as well as the posterior peritoneum. This closed the peritoneal surface itself. The apex of the vagina was closed, saved for a 1.5 cm defect. Then, the anterior vaginal mucosa was injected with 0.25% Marcaine with epinephrine. Metzenbaum scissors were used to divide this. This was carried up to within 2 cm of the urethra. The bladder was pushed free from the anterior vaginal vesicle mucosa. The excess vaginal mucosa was trimmed and then sutures of 0 Vicryl were used to plicate the vesicovaginal fascia. The anterior vaginal mucosa was then closed using 2-0 Vicryl in a running locking suture. Good hemostasis was observed. Attention was then turned to the posterior vaginal mucosa. Two Allis clamps were placed roughly 3 cm apart and then a triangular portion of the perineal epithelium was removed. Then 0.25% Marcaine was injected beneath the vaginal mucosa. This was carried all the way up to within 3-4 cm of the apex of the vagina. Then, a defect was created in the posterior vagina all the way to the sacrospinous ligament on the patient's right-hand side. Care was taken to isolate the rectum and the bowel. Then, utilizing a Capio suture applicator with 0 Tevdek. Two sutures were placed in the uterosacral ligament as close to the sacrum as possible. Then, these were passed through the apex of the vagina on the left and right-hand side. The rectovaginal fascia was then plicated with 0 Vicryl. Then, the excess vaginal mucosa was trimmed and then the sutures of Tevdek were pulled down, securing the apex of the vagina deep into the pelvis. The excess vaginal mucosa was trimmed and then this was closed using 2-0 Vicryl in a running locking suture. Cystoscopy was performed at this time and after 2 amps of methylene blue and 20 mg of Lasix, no further urine was noted to be coming through the ureters. Care was taken to assure that there was no other causes for anuria. It was decided at this time that probably the anterior sutures had kinked the ureters so the anterior vaginal mucosa was reopened and the anterior repair was taken down. Following this, there was evidence of good egress from both ureters, so the vaginal mucosa was re-closed. The vagina still was tethered deep into the pelvis; however, the anterior repair had to be taken down because of the kinked ureters. Ahumada catheter was placed and good urine was noted. The subumbilical as well as left and right lower quadrant incisions were then closed using 4-0 Monocryl subcuticular with Dermabond being placed. Vaginal packing containing estrogen was placed in the vagina. The patient tolerated the procedure well and was taken to recovery room in stable condition. Sponge and needle counts were correct. TD: 12/22/2017 19:55 MTDGladys
[2017-12-23] MEDS: SODIUM CHLORIDE 0.9% 1,000 ML IV SCH (07:39)
--- NOTE | 2017-12-23 08:28 | PROVIDER PROGRESS NOTE ---
Subjective - Prog Note Date Prog Note Date: 12/23/17 Prog Note Time: 06:15 - Subjective Subjective: Patient requested examination the patient due to pain not recurrent well- controlled with narcotics or NSAIDs. Patient reports a mid pelvic central pelvic pain grade 8-9/10. She describes it as a dull ache. She has no upper abdominal pain. No fevers chills slight nausea but no vomiting. Objective - Vital Signs/Intake & Output Intake & Output: Intake & Output 12/20/17 12/21/17 12/22/17 12/23/17 23:59 23:59 23:59 23:59 Intake Total 3000 970 Output Total 875 Balance 2125 970 - Lab Results Fish Bones: 12/23/17 15:53 12/23/17 15:53 Other Labs: Lab Results x24hrs 12/23/17 12/23/17 Range/Units 02:10 02:10 WBC 10.2 (4.8-10.8) x10^3/uL RBC 3.28 L (4.20-5.40) 10^6/uL Hgb 10.0 L (12.0-16.0) g/dL Hct 29.3 L (37.0-47.0) % MCV 89.4 (81.0-99.0) fL MCH 30.5 (27.0-31.0) pg MCHC 34.2 (32.0-36.0) g/dL RDW 13.2 (12.0-15.0) % Plt Count 212 (130-450) 10^3/uL MPV 7.8 L (7.9-10.8) fL Sodium 136 (135-145) mmol/L Potassium 3.4 L (3.5-5.0) mmol/L Chloride 103 (101-111) mmol/L Carbon Dioxide 27 (21-32) mmol/L Anion Gap 6.0 (6-13) BUN 13 (6-20) mg/dL Creatinine 0.7 (0.4-1.0) mg/dL Estimated GFR (MDRD) 89 (>89) Glucose 139 H (70-100) mg/dL Calcium 7.9 L (8.5-10.3) mg/dL Total Bilirubin 0.5 (0.2-1.0) mg/dL AST 20 (10-42) IU/L ALT 11 (10-60) IU/L Alkaline Phosphatase 41 L (42-121) IU/L Total Protein 5.4 L (6.7-8.2) g/dL Albumin 3.0 L (3.2-5.5) g/dL Globulin 2.4 (2.1-4.2) g/dL Albumin/Globulin Ratio 1.3 (1.0-2.2) Physical Exam - Physical Exam General: positive: In Pain, Alert HEENT: positive: Moist mucous membranes Neck: positive: Supple w/out meningeal sx Cardiac: positive: Regular Rate, Regular Rhythm Resipratory: positive: Clear to ausultation laina Abdomen: positive: Normal Bowel sounds, Other (No significant abdominal pain transfer text) Female : positive: Other (Internal exam deferred) Back: positive: Other (No CVA or flank tenderness transfer text) Extremities: positive: Normal ROM, Non tender Skin: positive: Warm and dry Neurologic: positive: Alert and Oriented X 3 Assessment/Plan - Assessment/Plan Assessment: Central pelvic pain is a common problem immediately post pelvic reconstruction. Patient does not report right sided pain. Was sacral spinous suspension combined with aggressive posterior repair occasionally there is coccygeus muscle spasm or levator plate spasm which amplifies baseline postsurgical pain of her posterior repair. Levator plate and coccygeal spasm may be self- limiting and respond to Flexeril, vaginal Valium and expectant management. With analgesic support. Often a pudendal block will help if there is pudendal nerve involvement. Pudendal nerve involvement is doubtful because of the central nature of the pain. I was present at the time of surgery and palpated the stitch medial to the spine, in the appropriate position. Plan: Discussed the case with Dr. Dooley the patient's surgeon Additional IV Dilaudid given Await narcotic effect to take hold, additionally may change NSAID to Toradol Vaginal exam may be useful to rule out small hematoma and point tenderness around the ischial spine Patient given Flexeril 3 times daily If pain is unremitting would consider pudendal block
[2017-12-23] MEDS: CYCLOBENZAPRINE 10 MG TABLET PO PRN (08:44)
[2017-12-23 08:56] LABS: BASOPHILS # (AUTO) 0.1 10^3/uL (0.0-0.1); BASOPHILS % (AUTO) 0.6 %; EOSINOPHILS # (AUTO) 0.1 10^3/uL (0.0-0.7); EOSINOPHILS % (AUTO) 1.5 %; HGB - HEMOGLOBIN 9.8 g/dL (12.0-16.0); LYMPHOCYTES # (AUTO) 0.9 10^3/uL (1.5-3.5); LYMPHOCYTES % (AUTO) 10.7 %; MEAN CORPUSCULAR HEMOGLOBIN 31.2 pg (27.0-31.0); MEAN CORPUSCULAR HGB CONC 35.5 g/dL (32.0-36.0); MEAN CORPUSCULAR VOLUME 87.9 fL (81.0-99.0); MEAN PLATELET VOLUME 7.5 fL (7.9-10.8); MONOCYTES # (AUTO) 0.6 10^3/uL (0.0-1.0); MONOCYTES % (AUTO) 7.2 %; NEUTROPHILS # (AUTO) 6.8 10^3/uL (1.5-6.6); PLT - PLATELET COUNT 188 10^3/uL (130-450); RED BLOOD COUNT 3.15 10^6/uL (4.20-5.40); RED CELL DISTRIBUTION WIDTH 13.2 % (12.0-15.0); WHITE BLOOD COUNT 8.5 x10^3/uL (4.8-10.8)
[2017-12-23 09:09] LABS: ALBUMIN 2.9 g/dL (3.2-5.5); ALBUMIN/GLOBULIN RATIO 1.2 (1.0-2.2); BILIRUBIN,TOTAL 0.8 mg/dL (0.2-1.0); CALCIUM 7.9 mg/dL (8.5-10.3); CREATININE 0.6 mg/dL (0.4-1.0); TOTAL PROTEIN 5.4 g/dL (6.7-8.2)
[2017-12-23] MEDS: MORPHINE PCA 50 MG IV PRN (11:11)
--- NOTE | 2017-12-23 11:59 | CT Report ---
Reason: POST OP PELVIC PAIN. Procedure Date: 12/23/2017 Accession Number: [id number] / [id number] Procedure: CT - Abdomen/Pelvis W/O CPT Code: FULL RESULT: EXAM: CT ABDOMEN AND PELVIS EXAM DATE: 12/23/2017 11:38 AM. CLINICAL HISTORY: Postop pelvic pain. COMPARISONS: ABDOMEN/PELVIS W/O 01/16/2017. TECHNIQUE: Routine helical CT imaging was performed through the abdomen and pelvis. IV contrast: None. Enteric contrast: No. Reconstructions: Coronal and sagittal. In accordance with CT protocol optimization, one or more of the following dose reduction techniques were utilized for this exam: automated exposure control, adjustment of mA and/or KV based on patient size, or use of iterative reconstructive technique. FINDINGS: Gas in the abdominal wall in periumbilical region may represent a postoperative finding. Evaluation of pelvic organs is limited due to absence of contrast and the nature of CT. Within these limitations, gas is seen in the expected region of the uterus. There is a small amount of free fluid within the pelvis. The noncontrast liver, gallbladder, spleen, left adrenal gland, kidneys and pancreas appear unremarkable. The right adrenal gland is not well seen. There is no bowel obstruction. Within the limitations of noncontrast examination, no gross mass or lymphadenopathy is identified. There are no aggressive osseous lesions. Small amount of free intraperitoneal gas is identified predominantly anterior to the liver. IMPRESSION: Limited examination with abdominal wall gas and a small amount of intraperitoneal gas as well as gas within pelvic organs, likely within normal limits in the postoperative state. RADIA
[2017-12-23] MEDS: BISACODYL 10 MG SUPP PR PRN (12:47)
--- NOTE | 2017-12-23 14:11 | PROVIDER PROGRESS NOTE ---
Subjective - Prog Note Date Prog Note Date: 12/23/17 Prog Note Time: 14:07 - Subjective Pt reports feeling: No change (Passing good flatus. Had hypotension with attempting bowel motion. Pain is in adiquit control. 1100 ml out since 0800.) Objective - Vital Signs/Intake & Output Reviewed Vital Signs: Yes Vital Signs: Vital Signs x48h Resp 12/23/17 11:50 16 Intake & Output: Intake & Output 12/20/17 12/21/17 12/22/17 12/23/17 23:59 23:59 23:59 23:59 Intake Total 3000 1030 Output Total 875 Balance 2125 1030 - Objective General Appearance: positive: Alert, Mild distress (C/O pain in the pelvis/ rectal aria. passing flatus.) Respiratory: positive: Chest non-tender, No respiratory distress, Breath sounds nml Cardiovascular: positive: Regular rate & rhythm, No murmur, No gallop Abdomen: positive: Nml bowel sounds, No distention, Tenderness. negative: Rebound - Lab Results Fish Bones: 12/23/17 08:51 12/23/17 08:51 Other Labs: Lab Results x24hrs 12/23/17 12/23/17 12/23/17 Range/Units 08:51 08:51 02:10 WBC 8.5 (4.8-10.8) x10^3/uL RBC 3.15 L (4.20-5.40) 10^6/uL Hgb 9.8 L (12.0-16.0) g/dL Hct 27.6 L (37.0-47.0) % MCV 87.9 (81.0-99.0) fL MCH 31.2 H (27.0-31.0) pg MCHC 35.5 (32.0-36.0) g/dL RDW 13.2 (12.0-15.0) % Plt Count 188 (130-450) 10^3/uL MPV 7.5 L (7.9-10.8) fL Neut # (Auto) 6.8 H (1.5-6.6) 10^3/uL Lymph # (Auto) 0.9 L (1.5-3.5) 10^3/uL [place] # (Auto) 0.6 (0.0-1.0) 10^3/uL Eos # (Auto) 0.1 (0.0-0.7) 10^3/uL Baso # (Auto) 0.1 (0.0-0.1) 10^3/uL Absolute Nucleated RBC 0.00 x10^3/uL Nucleated RBC % 0.0 /100WBC Sodium 134 L 136 (135-145) mmol/L Potassium 3.5 3.4 L (3.5-5.0) mmol/L Chloride 103 103 (101-111) mmol/L Carbon Dioxide 26 27 (21-32) mmol/L Anion Gap 5.0 L 6.0 (6-13) BUN 11 13 (6-20) mg/dL Creatinine 0.6 0.7 (0.4-1.0) mg/dL Estimated GFR (MDRD) 107 89 (>89) Glucose 96 139 H (70-100) mg/dL Calcium 7.9 L 7.9 L (8.5-10.3) mg/dL Total Bilirubin 0.8 0.5 (0.2-1.0) mg/dL AST 16 20 (10-42) IU/L ALT 12 11 (10-60) IU/L Alkaline Phosphatase 43 41 L (42-121) IU/L Total Protein 5.4 L 5.4 L (6.7-8.2) g/dL Albumin 2.9 L 3.0 L (3.2-5.5) g/dL Globulin 2.5 2.4 (2.1-4.2) g/dL Albumin/Globulin Ratio 1.2 1.3 (1.0-2.2) 12/23/17 Range/Units 02:10 WBC 10.2 (4.8-10.8) x10^3/uL RBC 3.28 L (4.20-5.40) 10^6/uL Hgb 10.0 L (12.0-16.0) g/dL Hct 29.3 L (37.0-47.0) % MCV 89.4 (81.0-99.0) fL MCH 30.5 (27.0-31.0) pg MCHC 34.2 (32.0-36.0) g/dL RDW 13.2 (12.0-15.0) % Plt Count 212 (130-450) 10^3/uL MPV 7.8 L (7.9-10.8) fL Neut # (Auto) (1.5-6.6) 10^3/uL Lymph # (Auto) (1.5-3.5) 10^3/uL [place] # (Auto) (0.0-1.0) 10^3/uL Eos # (Auto) (0.0-0.7) 10^3/uL Baso # (Auto) (0.0-0.1) 10^3/uL Absolute Nucleated RBC x10^3/uL Nucleated RBC % /100WBC Sodium (135-145) mmol/L Potassium (3.5-5.0) mmol/L Chloride (101-111) mmol/L Carbon Dioxide (21-32) mmol/L Anion Gap (6-13) BUN (6-20) mg/dL Creatinine (0.4-1.0) mg/dL Estimated GFR (MDRD) (>89) Glucose (70-100) mg/dL Calcium (8.5-10.3) mg/dL Total Bilirubin (0.2-1.0) mg/dL AST (10-42) IU/L ALT (10-60) IU/L Alkaline Phosphatase (42-121) IU/L Total Protein (6.7-8.2) g/dL Albumin (3.2-5.5) g/dL Globulin (2.1-4.2) g/dL Albumin/Globulin Ratio (1.0-2.2) Assessment/Plan - Problem List (1) Pelvic pain Impression: POD #1. episode of hypotension in the light of no tachycardia and good urine out put doubt hypovolemia. suspect vagal stimulation. however will bolus with 250 of LR and repeat CBC and BMP at 16oo.
[2017-12-23] MEDS: LACTATED RINGERS 1,000 ML IV SCH ×2 (14:14→21:07)
[2017-12-23] MEDS ORDERED: LACTATED RINGERS 1,000 ML IV SCH (15:00)
[2017-12-23 16:01] LABS: BASOPHILS % (AUTO) 0.4 %; EOSINOPHILS # (AUTO) 0.1 10^3/uL (0.0-0.7); EOSINOPHILS % (AUTO) 1.8 %; HGB - HEMOGLOBIN 9.9 g/dL (12.0-16.0); LYMPHOCYTES # (AUTO) 0.7 10^3/uL (1.5-3.5); LYMPHOCYTES % (AUTO) 10.2 %; MEAN CORPUSCULAR HEMOGLOBIN 30.3 pg (27.0-31.0); MEAN CORPUSCULAR VOLUME 89.1 fL (81.0-99.0); MEAN PLATELET VOLUME 7.7 fL (7.9-10.8); MONOCYTES # (AUTO) 0.6 10^3/uL (0.0-1.0); MONOCYTES % (AUTO) 8.2 %; NEUTROPHILS # (AUTO) 5.7 10^3/uL (1.5-6.6); NEUTROPHILS % (AUTO) 79.4 %; PLT - PLATELET COUNT 190 10^3/uL (130-450); RED BLOOD COUNT 3.28 10^6/uL (4.20-5.40); RED CELL DISTRIBUTION WIDTH 13.3 % (12.0-15.0); WHITE BLOOD COUNT 7.2 x10^3/uL (4.8-10.8)
[2017-12-23] MEDS ORDERED: MAGNESIUM HYDROXIDE 2,400 MG/30 ML UDC PO SCH (16:07)
[2017-12-23 16:13] LABS: CALCIUM 8.2 mg/dL (8.5-10.3); CREATININE 0.6 mg/dL (0.4-1.0)
--- NOTE | 2017-12-23 17:26 | PROVIDER PROGRESS NOTE ---
Subjective - Prog Note Date Prog Note Date: 12/23/17 Prog Note Time: 17:23 - Subjective Pt reports feeling: Improved (Pt is passing lots of flatus. Pain is adiquitly covered with [employer]. episods of nausia with pain.) Objective - Vital Signs/Intake & Output Reviewed Vital Signs: Yes Vital Signs: Vital Signs x48h Temp Pulse Resp BP Pulse Ox 12/23/17 16:12 36.9 C 78 18 98/62 97 12/23/17 14:45 67 16 91/59 L 99 12/23/17 14:15 67 16 85/81 H 99 12/23/17 14:00 36.7 C 63 16 81/42 L 100 12/23/17 13:00 16 12/23/17 11:50 16 Intake & Output: Intake & Output 12/20/17 12/21/17 12/22/17 12/23/17 23:59 23:59 23:59 23:59 Intake Total 3000 1090 Output Total 875 Balance 2125 1090 - Lab Results Fish Bones: 12/23/17 15:53 12/23/17 15:53 Other Labs: Lab Results x24hrs 12/23/17 12/23/17 12/23/17 Range/Units 15:53 15:53 08:51 WBC 7.2 (4.8-10.8) x10^3/uL RBC 3.28 L (4.20-5.40) 10^6/uL Hgb 9.9 L (12.0-16.0) g/dL Hct 29.2 L (37.0-47.0) % MCV 89.1 (81.0-99.0) fL MCH 30.3 (27.0-31.0) pg MCHC 34.0 (32.0-36.0) g/dL RDW 13.3 (12.0-15.0) % Plt Count 190 (130-450) 10^3/uL MPV 7.7 L (7.9-10.8) fL Neut # (Auto) 5.7 (1.5-6.6) 10^3/uL Lymph # (Auto) 0.7 L (1.5-3.5) 10^3/uL [place] # (Auto) 0.6 (0.0-1.0) 10^3/uL Eos # (Auto) 0.1 (0.0-0.7) 10^3/uL Baso # (Auto) 0.0 (0.0-0.1) 10^3/uL Absolute Nucleated RBC 0.00 x10^3/uL Nucleated RBC % 0.0 /100WBC Sodium 136 134 L (135-145) mmol/L Potassium 3.6 3.5 (3.5-5.0) mmol/L Chloride 104 103 (101-111) mmol/L Carbon Dioxide 26 26 (21-32) mmol/L Anion Gap 6.0 5.0 L (6-13) BUN 10 11 (6-20) mg/dL Creatinine 0.6 0.6 (0.4-1.0) mg/dL Estimated GFR (MDRD) 107 107 (>89) Glucose 98 96 (70-100) mg/dL Calcium 8.2 L 7.9 L (8.5-10.3) mg/dL Total Bilirubin 0.8 (0.2-1.0) mg/dL AST 16 (10-42) IU/L ALT 12 (10-60) IU/L Alkaline Phosphatase 43 (42-121) IU/L Total Protein 5.4 L (6.7-8.2) g/dL Albumin 2.9 L (3.2-5.5) g/dL Globulin 2.5 (2.1-4.2) g/dL Albumin/Globulin Ratio 1.2 (1.0-2.2) 12/23/17 12/23/17 12/23/17 Range/Units 08:51 02:10 02:10 WBC 8.5 10.2 (4.8-10.8) x10^3/uL RBC 3.15 L 3.28 L (4.20-5.40) 10^6/uL Hgb 9.8 L 10.0 L (12.0-16.0) g/dL Hct 27.6 L 29.3 L (37.0-47.0) % MCV 87.9 89.4 (81.0-99.0) fL MCH 31.2 H 30.5 (27.0-31.0) pg MCHC 35.5 34.2 (32.0-36.0) g/dL RDW 13.2 13.2 (12.0-15.0) % Plt Count 188 212 (130-450) 10^3/uL MPV 7.5 L 7.8 L (7.9-10.8) fL Neut # (Auto) 6.8 H (1.5-6.6) 10^3/uL Lymph # (Auto) 0.9 L (1.5-3.5) 10^3/uL [place] # (Auto) 0.6 (0.0-1.0) 10^3/uL Eos # (Auto) 0.1 (0.0-0.7) 10^3/uL Baso # (Auto) 0.1 (0.0-0.1) 10^3/uL Absolute Nucleated RBC 0.00 x10^3/uL Nucleated RBC % 0.0 /100WBC Sodium 136 (135-145) mmol/L Potassium 3.4 L (3.5-5.0) mmol/L Chloride 103 (101-111) mmol/L Carbon Dioxide 27 (21-32) mmol/L Anion Gap 6.0 (6-13) BUN 13 (6-20) mg/dL Creatinine 0.7 (0.4-1.0) mg/dL Estimated GFR (MDRD) 89 (>89) Glucose 139 H (70-100) mg/dL Calcium 7.9 L (8.5-10.3) mg/dL Total Bilirubin 0.5 (0.2-1.0) mg/dL AST 20 (10-42) IU/L ALT 11 (10-60) IU/L Alkaline Phosphatase 41 L (42-121) IU/L Total Protein 5.4 L (6.7-8.2) g/dL Albumin 3.0 L (3.2-5.5) g/dL Globulin 2.4 (2.1-4.2) g/dL Albumin/Globulin Ratio 1.3 (1.0-2.2) Assessment/Plan - Problem List (1) Pelvic pain Impression: Pelvic floor spasm. Change to toradol.
[2017-12-23] MEDS: KETOROLAC 30 MG/ML VIAL IVP PRN (17:37)
[2017-12-24] MEDS ORDERED: SODIUM CHLORIDE FLUSH 0.9% 10 ML SYRINGE ONE ×3 (00:11→15:53)
[2017-12-24] MEDS: KETOROLAC 30 MG/ML VIAL IVP PRN ×2 (00:13→08:56)
[2017-12-24] MEDS: ACETAMINOPHEN 500 MG TABLET PO PRN ×3 (00:48→16:26)
[2017-12-24 01:41] LABS: GLUCOSE, URINE (UA) NEGATIVE (NEGATIVE); KETONES,URINE (UA) TRACE mg/dL (NEGATIVE); LEUKOCYTE ESTERASE, URINE NEGATIVE (NEGATIVE); NITRITE,URINE NEGATIVE (NEGATIVE); OCCULT BLOOD,URINE TRACE-INTA (NEGATIVE); PH,URINE 7.5 PH (5.0-7.5); PROTEIN,URINE TRACE mg/dL (NEGATIVE); UROBILINOGEN,URINE 0.2 (NORMAL) E.U./dL (NORMAL)
[2017-12-24 01:59] LABS: BACTERIA,URINE Rare /HPF (None Seen); BILIRUBIN,URINE NEGATIVE (NEGATIVE); CLARITY,URINE CLEAR (CLEAR); ICTOTEST,URINE NEGATIVE; MUCUS,URINE Moderate Strands; RBC,URINE 0-5 /HPF (0-5); SQUAMOUS EPITHELIAL CELL,UR FEW Squamous (<= Few)
[2017-12-24] MEDS: MORPHINE PCA 50 MG IV PRN (02:08)
[2017-12-24] MEDS: CYCLOBENZAPRINE 10 MG TABLET PO PRN ×2 (03:30→18:11)
[2017-12-24] MEDS: LACTATED RINGERS 1,000 ML IV SCH ×3 (05:09→20:30)
[2017-12-24 06:32] LABS: BASOPHILS % (AUTO) 0.5 %; EOSINOPHILS # (AUTO) 0.2 10^3/uL (0.0-0.7); EOSINOPHILS % (AUTO) 2.6 %; LYMPHOCYTES # (AUTO) 1.1 10^3/uL (1.5-3.5); LYMPHOCYTES % (AUTO) 15.5 %; MEAN CORPUSCULAR HEMOGLOBIN 31.2 pg (27.0-31.0); MEAN CORPUSCULAR HGB CONC 34.9 g/dL (32.0-36.0); MEAN CORPUSCULAR VOLUME 89.2 fL (81.0-99.0); MEAN PLATELET VOLUME 8.1 fL (7.9-10.8); MONOCYTES # (AUTO) 0.7 10^3/uL (0.0-1.0); MONOCYTES % (AUTO) 9.5 %; NEUTROPHILS % (AUTO) 71.9 %; PLT - PLATELET COUNT 165 10^3/uL (130-450); RED BLOOD COUNT 2.89 10^6/uL (4.20-5.40); RED CELL DISTRIBUTION WIDTH 13.3 % (12.0-15.0); WHITE BLOOD COUNT 6.9 x10^3/uL (4.8-10.8)
--- NOTE | 2017-12-24 08:48 | PROVIDER PROGRESS NOTE ---
Subjective - General Admit Date: 12/23/17 Procedure Date: 12/22/17 Post Op Days: 2 Procedure Performed: LAVH with A&P and sacrospinus Suspension - Review of Systems Wound/Incisions: positive: Healing well General: positive: Fever (Pt recieved tylenol) Gastrointestinal: positive: Flatus (Moved bowels yesterday good results) Genitourinary: positive: No symptoms (mendoza draining) Objective - Patient Data Reviewed Vital Signs: Yes Vital Signs: Vital Signs x48h Temp Pulse Resp BP Pulse Ox 12/24/17 08:08 37.9 C H 80 16 95/52 L 99 12/24/17 06:45 37.0 C 75 16 91/51 L 99 12/24/17 04:00 18 12/24/17 03:35 37.6 C H Weight: Weight 12/22/17 12/23/17 12/24/17 23:59 23:59 23:59 Weight (kg) 49.1 kg Intake & Output: Intake and Output Totals x24h 12/22/17 12/23/17 12/24/17 23:59 23:59 23:59 Intake Total 3000 3100.417 1500 Output Total 875 1000 150 Balance 2125 2100.417 1350 - Lab Results Lab Results: 12/24/17 06:16 12/23/17 15:53 Other Lab Results: Lab Results x24hrs 12/24/17 12/24/17 12/23/17 Range/Units 06:16 01:15 15:53 WBC 6.9 (4.8-10.8) x10^3/uL RBC 2.89 L (4.20-5.40) 10^6/uL Hgb 9.0 L (12.0-16.0) g/dL Hct 25.8 L (37.0-47.0) % MCV 89.2 (81.0-99.0) fL MCH 31.2 H (27.0-31.0) pg MCHC 34.9 (32.0-36.0) g/dL RDW 13.3 (12.0-15.0) % Plt Count 165 (130-450) 10^3/uL MPV 8.1 (7.9-10.8) fL Neut # (Auto) 5.0 (1.5-6.6) 10^3/uL Lymph # (Auto) 1.1 L (1.5-3.5) 10^3/uL [place] # (Auto) 0.7 (0.0-1.0) 10^3/uL Eos # (Auto) 0.2 (0.0-0.7) 10^3/uL Baso # (Auto) 0.0 (0.0-0.1) 10^3/uL Absolute Nucleated RBC 0.00 x10^3/uL Nucleated RBC % 0.0 /100WBC Sodium 136 (135-145) mmol/L Potassium 3.6 (3.5-5.0) mmol/L Chloride 104 (101-111) mmol/L Carbon Dioxide 26 (21-32) mmol/L Anion Gap 6.0 (6-13) BUN 10 (6-20) mg/dL Creatinine 0.6 (0.4-1.0) mg/dL Estimated GFR (MDRD) 107 (>89) Glucose 98 (70-100) mg/dL Calcium 8.2 L (8.5-10.3) mg/dL Total Bilirubin (0.2-1.0) mg/dL AST (10-42) IU/L ALT (10-60) IU/L Alkaline Phosphatase (42-121) IU/L Total Protein (6.7-8.2) g/dL Albumin (3.2-5.5) g/dL Globulin (2.1-4.2) g/dL Albumin/Globulin Ratio (1.0-2.2) Urine Color GREEN Urine Clarity CLEAR (CLEAR) Urine pH 7.5 (5.0-7.5) PH Ur Specific [place] 1.015 (1.002-1.030) Urine Protein TRACE (NEGATIVE) mg/dL Urine Glucose (UA) NEGATIVE (NEGATIVE) mg/dL Urine Ketones TRACE (NEGATIVE) mg/dL Urine Occult Blood TRACE-INTA (NEGATIVE) Urine Nitrite NEGATIVE (NEGATIVE) Urine Bilirubin NEGATIVE (NEGATIVE) Urine Urobilinogen 0.2 (NORMAL) (NORMAL) E.U./dL Ur Leukocyte Esterase NEGATIVE (NEGATIVE) Urine RBC 0-5 (0-5) /HPF Urine WBC 0-3 (0-5) /HPF Ur Squamous Epith Cells FEW Squamous (<= Few) Urine Bacteria Rare (None Seen) /HPF Urine Mucus Moderate Strands Urine Culture Comments NOT INDICATED 12/23/17 12/23/17 12/23/17 Range/Units 15:53 08:51 08:51 WBC 7.2 8.5 (4.8-10.8) x10^3/uL RBC 3.28 L 3.15 L (4.20-5.40) 10^6/uL Hgb 9.9 L 9.8 L (12.0-16.0) g/dL Hct 29.2 L 27.6 L (37.0-47.0) % MCV 89.1 87.9 (81.0-99.0) fL MCH 30.3 31.2 H (27.0-31.0) pg MCHC 34.0 35.5 (32.0-36.0) g/dL RDW 13.3 13.2 (12.0-15.0) % Plt Count 190 188 (130-450) 10^3/uL MPV 7.7 L 7.5 L (7.9-10.8) fL Neut # (Auto) 5.7 6.8 H (1.5-6.6) 10^3/uL Lymph # (Auto) 0.7 L 0.9 L (1.5-3.5) 10^3/uL [place] # (Auto) 0.6 0.6 (0.0-1.0) 10^3/uL Eos # (Auto) 0.1 0.1 (0.0-0.7) 10^3/uL Baso # (Auto) 0.0 0.1 (0.0-0.1) 10^3/uL Absolute Nucleated RBC 0.00 0.00 x10^3/uL Nucleated RBC % 0.0 0.0 /100WBC Sodium 134 L (135-145) mmol/L Potassium 3.5 (3.5-5.0) mmol/L Chloride 103 (101-111) mmol/L Carbon Dioxide 26 (21-32) mmol/L Anion Gap 5.0 L (6-13) BUN 11 (6-20) mg/dL Creatinine 0.6 (0.4-1.0) mg/dL Estimated GFR (MDRD) 107 (>89) Glucose 96 (70-100) mg/dL Calcium 7.9 L (8.5-10.3) mg/dL Total Bilirubin 0.8 (0.2-1.0) mg/dL AST 16 (10-42) IU/L ALT 12 (10-60) IU/L Alkaline Phosphatase 43 (42-121) IU/L Total Protein 5.4 L (6.7-8.2) g/dL Albumin 2.9 L (3.2-5.5) g/dL Globulin 2.5 (2.1-4.2) g/dL Albumin/Globulin Ratio 1.2 (1.0-2.2) Urine Color Urine Clarity (CLEAR) Urine pH (5.0-7.5) PH Ur Specific [place] (1.002-1.030) Urine Protein (NEGATIVE) mg/dL Urine Glucose (UA) (NEGATIVE) mg/dL Urine Ketones (NEGATIVE) mg/dL Urine Occult Blood (NEGATIVE) Urine Nitrite (NEGATIVE) Urine Bilirubin (NEGATIVE) Urine Urobilinogen (NORMAL) E.U./dL Ur Leukocyte Esterase (NEGATIVE) Urine RBC (0-5) /HPF Urine WBC (0-5) /HPF Ur Squamous Epith Cells (<= Few) Urine Bacteria (None Seen) /HPF Urine Mucus Urine Culture Comments - Imaging Results Radiology Imaging: positive: Final report received (FOS) - Current Medications Current Medications: Current Medications Generic Name Dose Route Start Last Admin Trade Name Freq PRN Reason Stop Dose Admin Acetaminophen 500 mg 12/24/17 00:39 12/24/17 00:48 Tylenol PO 500 mg Q6HR PRN Administration Pain or Fever > 38C (100.4F) Bisacodyl 10 mg 12/23/17 12:26 12/23/17 12:47 Dulcolax Supp [place] 10 mg DAILY PRN Administration Constipation Cyclobenzaprine HCl 10 mg 12/23/17 08:24 12/24/17 03:30 Flexeril PO 10 mg TID PRN Administration Spasms Lactated Ringer's 1,000 mls @ 125 mls/hr 12/23/17 15:00 12/24/17 05:09 Lr IV 125 mls/hr .Q8H MAXIME Administration Ketorolac Tromethamine 30 mg 12/23/17 17:18 12/24/17 00:13 Toradol Inj (30mg) IVP 12/28/17 17:17 30 mg Q6HR PRN Administration PAIN Morphine Sulfate/Sodium Chloride 0 mg 12/23/17 10:42 12/24/17 02:08 Morphine [employer] (Use [employer] Order Set) IV 50 mg MARRIAGE AND FAMILY THERAPIST PRN Administration PAIN Protocol Ondansetron HCl 4 mg 12/22/17 23:56 12/23/17 16:08 Zofran Inj IVP 4 mg Q6HR PRN Administration Nausea / Vomiting Oxycodone HCl 5 - 10 mg 12/22/17 20:29 12/23/17 07:37 Roxicodone PO 10 mg Q6HR PRN Administration PAIN - Physical Exam Wound/Incisions: positive: Healing well, Dressing dry and intact, No drainage General Appearance: positive: Mild distress (Pain 7/10. notes adiquit pain control) Neck: positive: Nml inspection Respiratory: positive: Rales (at bases) Cardiovascular: positive: Regular rate & rhythm, No murmur Abdomen: positive: No organomegaly, Nml bowel sounds, No distention, Tenderness (Lower abdomin) Back: positive: Nml inspection. negative: CVA tenderness (R), CVA tenderness (L ) Skin: positive: Color nml, Warm, Dry Extremities: negative: Calf tenderness, Teresa's sign/cords Neurologic/Psychiatric: positive: Oriented x3 Impression/Plan - Problem List Problem List: POD #2 Slow progress. Fever. negative urine, WBC normal Suspect post op atelectasis Incentive insprometry, Ambulate remove mendoza.
[2017-12-24] MEDS: POLYETHYLENE GLYCOL 3350 17 GM PACKET PO SCH (08:58)
[2017-12-24] MEDS: MAGNESIUM HYDROXIDE 2,400 MG/30 ML UDC PO SCH (11:03)
[2017-12-24] MEDS: oxyCODONE 5 MG TABLET PO PRN ×5 (12:18→23:50)
[2017-12-24] MEDS: PRENATAL VITAMIN TABLET PO SCH (14:41)
[2017-12-24] MEDS: IBUPROFEN 600 MG TABLET PO PRN ×2 (14:41→20:28)
[2017-12-24] MEDS: ONDANSETRON 4 MG/2 ML VIAL IVP PRN ×2 (16:27→23:49)
[2017-12-25] MEDS: ACETAMINOPHEN 500 MG TABLET PO PRN ×2 (00:19→08:01)
[2017-12-25] MEDS: CYCLOBENZAPRINE 10 MG TABLET PO PRN ×4 (01:58→23:58)
[2017-12-25] MEDS: oxyCODONE 5 MG TABLET PO PRN ×6 (04:35→20:38)
[2017-12-25] MEDS: LACTATED RINGERS 1,000 ML IV SCH ×2 (04:36→12:56)
[2017-12-25] MEDS: IBUPROFEN 600 MG TABLET PO PRN (06:48)
[2017-12-25] MEDS: ONDANSETRON 4 MG/2 ML VIAL IVP PRN ×2 (06:48→20:27)
[2017-12-25] MEDS: POLYETHYLENE GLYCOL 3350 17 GM PACKET PO SCH (07:59)
[2017-12-25] MEDS: MAGNESIUM HYDROXIDE 2,400 MG/30 ML UDC PO SCH (08:00)
[2017-12-25] MEDS: PRENATAL VITAMIN TABLET PO SCH (08:01)
--- NOTE | 2017-12-25 12:22 | PROVIDER PROGRESS NOTE ---
Subjective - Prog Note Date Prog Note Date: 12/25/17 Prog Note Time: 12:20 - Subjective Pt reports feeling: Worse Subjective: Mrs. Jensen states that she is feeling worse today. Denies fevers or chills. States feeling worse due to pelvic pressure and cramps. Discomfort mainly in bladder area. Feeling spasms. Mrs. Jensen is able to ambulate and urinate. Never had UTI previously. Feels like she can still empty her bladder after she's urinated. Decreased appetite. Objective - Vital Signs/Intake & Output Reviewed Vital Signs: Yes Vital Signs: Vital Signs x48h Temp Pulse Resp BP Pulse Ox 12/25/17 10:38 100.4 F H 12/25/17 09:38 100.0 F H 12/25/17 07:54 100.6 F H 84 16 95/55 L 97 12/25/17 04:39 99.1 F 76 18 103/61 100 Intake & Output: Intake & Output 12/22/17 12/23/17 12/24/17 12/25/17 23:59 23:59 23:59 23:59 Intake Total 3000 3100.417 3897.917 1250 Output Total 875 1227 818 1849 Balance 2125 2100.417 2997.917 -700 - Objective General Appearance: positive: No acute distress, Lethargic Respiratory: positive: No respiratory distress Cardiovascular: positive: Regular rate & rhythm, No murmur Abdomen: positive: Other (No peritoneal signs) - Lab Results Fish Bones: 12/24/17 06:16 12/23/17 15:53 Assessment/Plan - Problem List (1) H/O hysterectomy with unilateral oophorectomy Impression: 47 yo S/p 12/22/2017 JONATHAN, BS, anterior and posterior colporrhaphy, cystoscopy, sacrospinous ligament suspension, take down of anterior colporrhaphy Unsatisfactorily controlled pain Low grade fever CBC and CXR per Dr. Dooley Will check UA with C&S if indicated Pyridium IV gentamycin and clindamycin Continue maximal pain control with NSAIDs, acetaminophen and muscle relaxants
[2017-12-25 12:50] LABS: BASOPHILS % (AUTO) 0.4 %; EOSINOPHILS # (AUTO) 0.1 10^3/uL (0.0-0.7); EOSINOPHILS % (AUTO) 1.8 %; HGB - HEMOGLOBIN 8.9 g/dL (12.0-16.0); LYMPHOCYTES # (AUTO) 0.8 10^3/uL (1.5-3.5); LYMPHOCYTES % (AUTO) 10.1 %; MEAN CORPUSCULAR HEMOGLOBIN 30.9 pg (27.0-31.0); MEAN CORPUSCULAR VOLUME 88.2 fL (81.0-99.0); MEAN PLATELET VOLUME 7.7 fL (7.9-10.8); MONOCYTES # (AUTO) 0.7 10^3/uL (0.0-1.0); MONOCYTES % (AUTO) 9.3 %; NEUTROPHILS # (AUTO) 6.3 10^3/uL (1.5-6.6); NEUTROPHILS % (AUTO) 78.4 %; PLT - PLATELET COUNT 187 10^3/uL (130-450); RED BLOOD COUNT 2.87 10^6/uL (4.20-5.40)
[2017-12-25] MEDS ORDERED: CLINDAMYCIN INJ 300 MG in SODIUM CHLORIDE 0.9% 50 ML IV SCH (13:00)
--- NOTE | 2017-12-25 13:15 | XRAY Report ---
Reason: new fever Procedure Date: 12/25/2017 Accession Number: [id number] / [id number] Procedure: XR - Chest 2 View X-Ray CPT Code: 46676 FULL RESULT: EXAM: CHEST RADIOGRAPHY EXAM DATE: 12/25/2017 12:27 PM. CLINICAL HISTORY: New fever. Postop hysterectomy. COMPARISON: CT abdomen pelvis 12/23/2017. TECHNIQUE: 2 views. FINDINGS: Lungs/Pleura: No focal opacities evident. No pleural effusion. No pneumothorax. Normal volumes. Mediastinum: Heart and mediastinal contours are unremarkable. Other: Minimal air in the stomach. IMPRESSION: Normal 2-view chest radiography. RADIA
--- NOTE | 2017-12-25 13:16 | PROVIDER PROGRESS NOTE ---
Subjective - General Admit Date: 12/23/17 Procedure Date: 12/22/17 Post Op Days: 3 Procedure Performed: LAVH with A&P and sacrospinus Suspension - Review of Systems Wound/Incisions: positive: Healing well, Dressing dry and intact, No drainage General: positive: Fever (Pt continues to develop temps. Her pain is cramping worse with defication. location is in karl rectal aria. adn low back.) Pulmonary: positive: No symptoms (using triflow.) Gastrointestinal: positive: Flatus (Moved bowels yesterday good results) Genitourinary: positive: No symptoms (mendoza draining) Objective - Patient Data Reviewed Vital Signs: Yes Vital Signs: Vital Signs x48h Temp Pulse Resp BP Pulse Ox 12/25/17 10:38 38.0 C H 12/25/17 09:38 37.8 C H 12/25/17 07:54 38.1 C H 84 16 95/55 L 97 Intake & Output: Intake and Output Totals x24h 12/23/17 12/24/17 12/25/17 23:59 23:59 23:59 Intake Total 3100.417 3897.917 2250 Output Total 1806 941 1174 Balance 2100.417 2997.917 300 - Lab Results Lab Results: 12/25/17 12:45 12/23/17 15:53 Other Lab Results: Lab Results x24hrs 12/25/17 Range/Units 12:45 WBC 8.0 (4.8-10.8) x10^3/uL RBC 2.87 L (4.20-5.40) 10^6/uL Hgb 8.9 L (12.0-16.0) g/dL Hct 25.3 L (37.0-47.0) % MCV 88.2 (81.0-99.0) fL MCH 30.9 (27.0-31.0) pg MCHC 35.0 (32.0-36.0) g/dL RDW 13.0 (12.0-15.0) % Plt Count 187 (130-450) 10^3/uL MPV 7.7 L (7.9-10.8) fL Neut # (Auto) 6.3 (1.5-6.6) 10^3/uL Lymph # (Auto) 0.8 L (1.5-3.5) 10^3/uL [place] # (Auto) 0.7 (0.0-1.0) 10^3/uL Eos # (Auto) 0.1 (0.0-0.7) 10^3/uL Baso # (Auto) 0.0 (0.0-0.1) 10^3/uL Absolute Nucleated RBC 0.00 x10^3/uL Nucleated RBC % 0.1 /100WBC - Current Medications Current Medications: Current Medications Generic Name Dose Route Start Last Admin Trade Name Freq PRN Reason Stop Dose Admin Bisacodyl 10 mg 12/23/17 12:26 12/23/17 12:47 Dulcolax Supp [place] 10 mg DAILY PRN Administration Constipation Cyclobenzaprine HCl 10 mg 12/23/17 08:24 12/25/17 10:39 Flexeril PO 10 mg TID PRN Administration Spasms Lactated Ringer's 1,000 mls @ 125 mls/hr 12/23/17 15:00 12/25/17 12:56 Lr IV 125 mls/hr .Q8H MAXIME Administration Magnesium Hydroxide 2,400 mg 12/24/17 09:00 12/25/17 08:00 Milk Of Magnesia PO 2,400 mg DAILY MAXIME Administration Ondansetron HCl 4 mg 12/22/17 23:56 12/25/17 06:48 Zofran Inj IVP 4 mg Q6HR PRN Administration Nausea / Vomiting Oxycodone HCl 5 - 10 mg 12/24/17 11:51 12/25/17 12:19 Roxicodone PO 10 mg Q4HR PRN Administration PAIN Polyethylene Glycol 17 gm 12/24/17 09:00 12/25/17 07:59 Miralax PO 17 gm DAILY MAXIME Administration Multivit/Folic Acid/Iron 1 tab 12/24/17 14:00 12/25/17 08:01 Trinatal Rx 1 PO 1 tab DAILYWM MAXIME Administration - Physical Exam Wound/Incisions: positive: Healing well, No drainage General Appearance: positive: Alert, Mild distress (Pain 7/10. moving) Respiratory: positive: Chest non-tender, No respiratory distress, Breath sounds nml Cardiovascular: positive: Regular rate & rhythm, No murmur Abdomen: positive: Nml bowel sounds, No distention, Tenderness (lower pelvis) Back: negative: CVA tenderness (R), CVA tenderness (L) Skin: positive: Color nml, No rash, Warm Neurologic/Psychiatric: positive: Oriented x3 Impression/Plan - Problem List Problem List: Reviewed Dr Fernández's note POD # 3 continued pelvic pain possible pain secondary to Sacrospinous stitch. if pain doesn't resolve consider removal. fevers. CBC not showing a lukocytosis. Starting clinda and gent.
[2017-12-25] MEDS ORDERED: SODIUM CHLORIDE 0.9% 50 ML IV ONE (13:21)
[2017-12-25 13:24] LABS: BILIRUBIN,URINE NEGATIVE (NEGATIVE); GLUCOSE, URINE (UA) NEGATIVE (NEGATIVE); KETONES,URINE (UA) NEGATIVE (NEGATIVE); LEUKOCYTE ESTERASE, URINE SMALL (NEGATIVE); NITRITE,URINE NEGATIVE (NEGATIVE); OCCULT BLOOD,URINE TRACE-INTA (NEGATIVE); PH,URINE 7.5 PH (5.0-7.5); PROTEIN,URINE NEGATIVE (NEGATIVE); UROBILINOGEN,URINE 0.2 (NORMAL) E.U./dL (NORMAL)
[2017-12-25 13:32] LABS: BACTERIA,URINE Rare /HPF (None Seen); CLARITY,URINE CLEAR (CLEAR); RBC,URINE 0-5 /HPF (0-5); SQUAMOUS EPITHELIAL CELL,UR RARE Squamous (<= Few)
[2017-12-25] MEDS: ACETAMINOPHEN 500 MG TABLET PO SCH ×2 (13:50→21:36)
[2017-12-25] MEDS: CELECOXIB 100 MG CAPSULE PO SCH ×2 (13:50→21:36)
[2017-12-25] MEDS: SODIUM CHLORIDE 0.9% IV SCH (13:55)
[2017-12-25] MEDS: GENTAMICIN IV SCH (13:55)
[2017-12-25] MEDS: PHENAZOPYRIDINE 100 MG TABLET PO SCH ×2 (14:54→21:37)
[2017-12-25] MEDS: CLINDAMYCIN 600 MG/50 ML 50 ML IV SCH ×2 (15:40→21:36)
[2017-12-25] MEDS ORDERED: SODIUM CHLORIDE FLUSH 0.9% 10 ML SYRINGE ONE ×2 (17:44→20:22)
[2017-12-26] MEDS: LACTATED RINGERS 1,000 ML IV SCH (01:05)
[2017-12-26] MEDS: oxyCODONE 5 MG TABLET PO PRN ×6 (01:09→21:27)
[2017-12-26] MEDS: CLINDAMYCIN 600 MG/50 ML 50 ML IV SCH ×4 (02:54→21:32)
[2017-12-26] MEDS: PHENAZOPYRIDINE 100 MG TABLET PO SCH ×3 (05:17→21:27)
[2017-12-26] MEDS: ACETAMINOPHEN 500 MG TABLET PO SCH ×3 (05:17→21:27)
[2017-12-26] MEDS: ONDANSETRON 4 MG/2 ML VIAL IVP PRN ×3 (06:58→19:41)
[2017-12-26] MEDS: SODIUM CHLORIDE FLUSH 0.9% 10 ML SYRINGE IVP PRN ×2 (06:58→14:12)
--- NOTE | 2017-12-26 08:38 | PROVIDER PROGRESS NOTE ---
Subjective - General Admit Date: 12/25/17 Procedure Date: 12/22/17 Post Op Days: 4 Procedure Performed: LAVH with A&P and sacrospinus Suspension - Review of Systems Wound/Incisions: positive: Healing well, No drainage General: positive: No symptoms (Pt feeling improved. passing flatus and moving bowels. Pain 6/10 thinks that her pyridium is helping with bladder spasms. eating better.). negative: Fever (Pt continues to develop temps. Her pain is cramping worse with defication. location is in karl rectal aria. adn low back.) Pulmonary: positive: No symptoms (using triflow.) Gastrointestinal: positive: Flatus (Moved bowels yesterday good results) Genitourinary: positive: No symptoms (needs to void quickly. able to control.) Objective - Patient Data Reviewed Vital Signs: Yes Vital Signs: Vital Signs x48h Temp Pulse Resp BP Pulse Ox 12/26/17 08:23 36.3 C L 85 16 109/69 97 12/26/17 05:00 37.0 C 75 17 98/60 98 Intake & Output: Intake and Output Totals x24h 12/24/17 12/25/17 12/26/17 23:59 23:59 23:59 Intake Total 3897.917 3358.084 685.417 Output Total 900 1950 Balance 2997.917 1408.084 685.417 - Lab Results Lab Results: 12/25/17 12:45 12/23/17 15:53 Other Lab Results: Lab Results x24hrs 12/25/17 12/25/17 Range/Units 13:20 12:45 WBC 8.0 (4.8-10.8) x10^3/uL RBC 2.87 L (4.20-5.40) 10^6/uL Hgb 8.9 L (12.0-16.0) g/dL Hct 25.3 L (37.0-47.0) % MCV 88.2 (81.0-99.0) fL MCH 30.9 (27.0-31.0) pg MCHC 35.0 (32.0-36.0) g/dL RDW 13.0 (12.0-15.0) % Plt Count 187 (130-450) 10^3/uL MPV 7.7 L (7.9-10.8) fL Neut # (Auto) 6.3 (1.5-6.6) 10^3/uL Lymph # (Auto) 0.8 L (1.5-3.5) 10^3/uL [place] # (Auto) 0.7 (0.0-1.0) 10^3/uL Eos # (Auto) 0.1 (0.0-0.7) 10^3/uL Baso # (Auto) 0.0 (0.0-0.1) 10^3/uL Absolute Nucleated RBC 0.00 x10^3/uL Nucleated RBC % 0.1 /100WBC Urine Color GREEN Urine Clarity CLEAR (CLEAR) Urine pH 7.5 (5.0-7.5) PH Ur Specific [place] 1.010 (1.002-1.030) Urine Protein NEGATIVE (NEGATIVE) mg/dL Urine Glucose (UA) NEGATIVE (NEGATIVE) mg/dL Urine Ketones NEGATIVE (NEGATIVE) mg/dL Urine Occult Blood TRACE-INTA (NEGATIVE) Urine Nitrite NEGATIVE (NEGATIVE) Urine Bilirubin NEGATIVE (NEGATIVE) Urine Urobilinogen 0.2 (NORMAL) (NORMAL) E.U./dL Ur Leukocyte Esterase SMALL H (NEGATIVE) Urine RBC 0-5 (0-5) /HPF Urine WBC 11-25 H (0-5) /HPF Ur Squamous Epith Cells RARE Squamous (<= Few) Urine Bacteria Rare (None Seen) /HPF Urine Culture Comments INDICATED - Current Medications Current Medications: Current Medications Generic Name Dose Route Start Last Admin Trade Name Freq PRN Reason Stop Dose Admin Acetaminophen 1,000 mg 12/25/17 13:00 12/26/17 05:17 Tylenol PO 1,000 mg Q8H MAXIME Administration Bisacodyl 10 mg 12/23/17 12:26 12/23/17 12:47 Dulcolax Supp [place] 10 mg DAILY PRN Administration Constipation Celecoxib 200 mg 12/25/17 13:00 12/25/17 21:36 Celebrex PO 200 mg BID MAXIME Administration Cyclobenzaprine HCl 10 mg 12/23/17 08:24 12/25/17 23:58 Flexeril PO 10 mg TID PRN Administration Spasms Lactated Ringer's 1,000 mls @ 125 mls/hr 12/23/17 15:00 12/26/17 03:25 Lr IV 125 mls/hr .Q8H MAXIME Infusion Gentamicin Sulfate 240 mg/ 106 mls @ 212 mls/hr 12/25/17 14:00 12/25/17 14:39 Sodium Chloride IV Infused Q24H MAXIME Infusion Clindamycin Phosphate 50 mls @ 100 mls/hr 12/25/17 15:00 12/26/17 03:25 Cleocin 600 Mg/50 Ml IV Infused Q6H MAXIME Infusion Magnesium Hydroxide 2,400 mg 12/24/17 09:00 12/25/17 08:00 Milk Of Magnesia PO 2,400 mg DAILY MAXIME Administration Ondansetron HCl 4 mg 12/22/17 23:56 12/26/17 06:58 Zofran Inj IVP 4 mg Q6HR PRN Administration Nausea / Vomiting Oxycodone HCl 5 - 10 mg 12/24/17 11:51 12/26/17 05:16 Roxicodone PO 10 mg Q4HR PRN Administration PAIN Phenazopyridine HCl 200 mg 12/25/17 14:00 12/26/17 05:17 Pyridium PO 200 mg TID MAXIME Administration Polyethylene Glycol 17 gm 12/24/17 09:00 12/25/17 07:59 Miralax PO 17 gm DAILY MAXIME Administration Multivit/Folic Acid/Iron 1 tab 12/24/17 14:00 12/25/17 08:01 Trinatal Rx 1 PO 1 tab DAILYWM MAXIME Administration Sodium Chloride 10 ml 12/26/17 06:56 12/26/17 06:58 Normal Saline Flush 0.9% IVP 10 ml PRN PRN Administration NEEDED PER PROVIDER ORDERS - Physical Exam Wound/Incisions: positive: Healing well, Dressing dry and intact, No drainage General Appearance: positive: No acute distress Respiratory: positive: Chest non-tender, No respiratory distress, Breath sounds nml Cardiovascular: positive: Regular rate & rhythm, No murmur, No gallop Abdomen: positive: Nml bowel sounds, Tenderness (as to be expected) Back: negative: CVA tenderness (R), CVA tenderness (L) Extremities: negative: Calf tenderness, Teresa's sign/cords Neurologic/Psychiatric: positive: Oriented x3 Impression/Plan - Problem List Problem List: Post op fever resolving. ambulating well continue with Antibiotics and change to orals tomorrow
[2017-12-26] MEDS: CELECOXIB 100 MG CAPSULE PO SCH ×2 (09:07→21:27)
[2017-12-26] MEDS: PRENATAL VITAMIN TABLET PO SCH (09:07)
[2017-12-26] MEDS: MAGNESIUM HYDROXIDE 2,400 MG/30 ML UDC PO SCH (09:08)
[2017-12-26] MEDS: POLYETHYLENE GLYCOL 3350 17 GM PACKET PO SCH (09:08)
[2017-12-26] MEDS: CYCLOBENZAPRINE 10 MG TABLET PO PRN ×2 (11:41→21:27)
[2017-12-26] MEDS ORDERED: SODIUM CHLORIDE 0.9% 100ML 100 ML IV ONE (14:01)
[2017-12-26] MEDS ORDERED: SODIUM CHLORIDE FLUSH 0.9% 10 ML SYRINGE ONE (14:01)
[2017-12-26] MEDS: GENTAMICIN IV SCH ×2 (14:12→15:02)
[2017-12-26] MEDS: SODIUM CHLORIDE 0.9% IV SCH ×2 (14:12→15:02)
[2017-12-26] MEDS: SENNA 8.6 MG TABLET PO SCH (17:20)
[2017-12-26] MEDS: DOCUSATE SODIUM 250 MG CAPSULE PO SCH (17:20)
[2017-12-26] MEDS: BISACODYL 10 MG SUPP PR PRN (21:32)
[2017-12-27] MEDS: CLINDAMYCIN 600 MG/50 ML 50 ML IV SCH ×2 (02:30→07:53)
[2017-12-27] MEDS: SODIUM CHLORIDE FLUSH 0.9% 10 ML SYRINGE IVP PRN ×5 (02:31→09:38)
[2017-12-27] MEDS: ONDANSETRON 4 MG/2 ML VIAL IVP PRN ×2 (03:07→09:31)
[2017-12-27] MEDS: oxyCODONE 5 MG TABLET PO PRN ×3 (03:16→12:48)
[2017-12-27] MEDS: ACETAMINOPHEN 500 MG TABLET PO SCH ×2 (05:20→12:47)
[2017-12-27] MEDS: PHENAZOPYRIDINE 100 MG TABLET PO SCH (05:20)
[2017-12-27] MEDS: CYCLOBENZAPRINE 10 MG TABLET PO PRN ×2 (05:20→12:47)
[2017-12-27] MEDS: POLYETHYLENE GLYCOL 3350 17 GM PACKET PO SCH (07:11)
[2017-12-27] MEDS: MAGNESIUM HYDROXIDE 2,400 MG/30 ML UDC PO SCH (07:11)
[2017-12-27] MEDS: CELECOXIB 100 MG CAPSULE PO SCH (07:54)
[2017-12-27] MEDS: PRENATAL VITAMIN TABLET PO SCH (07:55)
[2017-12-27] MEDS: SENNA 8.6 MG TABLET PO SCH (07:55)
[2017-12-27] MEDS: DOCUSATE SODIUM 250 MG CAPSULE PO SCH (07:55)
--- NOTE | 2017-12-27 10:46 | Discharge Plan ---
Discharge Plan Disposition: 01 Home, Self Care Condition: Stable Diet: Regular Activity Restrictions: Activity as Tolerated Shower Restrictions: No Driving Restrictions: Yes (Should not drive while taking narcotics ) Weight Bearing: Full Weight No Smoking: If you smoke, Please STOP! Call for help. Follow-up with: Isaac Bernal MD [Provider Admit Priv/Credential] -
[2017-12-27] MEDS ORDERED: metroNIDAZOLE 250 MG TABLET PO SCH (11:00)
[2017-12-27] MEDS ORDERED: AMOX/CLAV 500 MG/125 MG TABLET PO SCH (11:00)
[2017-12-27 12:09] VITALS: BP 102/55
--- NOTE | 2017-12-27 13:09 | DISCHARGE SUMMARY ---
Physician: Isaac Bernal MD DATE OF ADMISSION: 12/22/2017 DATE OF DISCHARGE: 12/27/2017 DIAGNOSES 1. Third-degree cystorectocele, ureterovaginal prolapse. 2. Postoperative bacterial cystitis PROCEDURES (Dr. Isaac Dooley) 1. Laparoscopic-assisted vaginal hysterectomy. 2. Anterior and posterior repair. 3. Sacrospinous colpopexy. 4. Bilateral salpingectomy. 5. Cystoscopy . COMPLICATIONS: Ureteric obstruction remedied with a takedown of anterior repair. HISTORY OF PRESENT ILLNESS: The patient is a 47-year-old multigravida who was found to have a symptomatic grade III pelvic organ prolapse. Medically, she had no cardiovascular disease. ALLERGIES: INCLUDED COMPAZINE WHICH CAUSED A DYSTONIC REACTION. PLANNED PROCEDURE: Planned reconstructive procedure was for LAVH with bilateral salpingectomy; anterior and posterior repair with sacrospinous suspension procedure. Reference Dr. Dooley's H and P. HOSPITAL COURSE: The patient was admitted on the morning of the 12/14/2017 for reconstructive surgery. Laparoscopic-assisted vaginal hysterectomy with bilateral salpingectomy was accomplished without difficulty. Anterior and posterior repair were done without difficulty. Sacrospinous colpopexy was completed with a Capio. At the completion of the case, cystoscopy was performed that found bilateral ureteral occlusion. Subsequently, anterior colporrhaphy stitches were removed and ureteric function returned. Final check found two patent ureters. Total blood loss, loss for the case was 200 mL, and the patient went to the recovery room in good condition. During the design lead hours of postop day #1, the patient developed mid pelvic spastic pain. She was afebrile with stable vital signs. She was given increased narcotics and Flexeril to calm levator plate spasm. There was no evidence of pudendal nerve involvement. CT scan was performed that found normal postoperative changes. The patient was begun on bowel care protocol. Postop hemoglobin remained stable at about 9.9 with no leukocytosis (WBC 7.2-8.5 ). Pain remained difficult to control. Aggressive incentive spirometry was begun due to suspected atelectasis. On the morning of 12/24/2017, patient's temperature eileen to 37.9. Postoperative day #3, chest x-ray did not find a pneumonia or pneumothorax. The patient was begun on IV gentamicin and clindamycin with Pyridium for bladder spasm. On the morning of postoperative day #3, the patient spiked a temperature to 38.1. No leukocytosis was noted, and the patient's urinalysis was consistent with bacterial cystitis, growing out Enterococcus faecalis. Patient's GI function had improved, and she began passing flatus. The patient began to defecate which eased some of her pain, descending down to 6/10. On 12/27/2017, the patient felt well and was ambulatory, reporting normal bowel function. She still had some mild abdominal distention, but did have bowel tones. She strongly desired discharge home. IV antibiotics were discontinued for amoxicillin and Flagyl. The patient was prepared for possible discharge. Prior to discharge complete warning sign and callback instructions were reviewed. The patient is to get a reliable thermometer, and to take her temperature at 0800, 1200, 1600 hours and bedtime. Additionally, she is to report any Fever 100.5 or greater, night sweats or rigors. If she develops increasing abdominal pain, bloody diarrhea, constipation, she is to notify our service immediately. DISCHARGE MEDICATIONS 1. Celebrex 200 p.o. b.i.d. 2. Oxycodone 5 mg 1 tab q. 4 hours p.r.n. breakthrough pain. 3. Flexeril 10 mg t.i.d. 4. Colace 250 b.i.d. 5. Lactulose 10 grams oral daily. 6. vitamins with iron. FOLLOWUP: The patient will be seen on for postoperative office visit # 1. TD: 12/27/2017 10:55 MARKO
[2017-12-27] MEDS ORDERED: SENNA 8.6 MG TABLET PO SCH (17:00)
== END 2017-12-27 13:40 | disposition home or self-care (01) | DRG 743 ==
LOC: SDS 07:37 → MS2 19:48 → OBS 21:16 → SDS 12-23 17:27 → OBS 12-23 17:28 → OBSVTOIN 12-25 14:14 → MS2 12-25 14:22
PROVIDERS: ADMIT Obstetrics & Gynecology; ATTEND Obstetrics & Gynecology
PROC: 0UT9FZZ Resection of Uterus, Via Natural or Artificial Opening With Percutaneous Endoscopic Assistance (ICD-10-PCS; principal; 2017-12-25)
PROC: 0UT7FZZ Resection of Bilateral Fallopian Tubes, Via Natural or Artificial Opening With Percutaneous Endoscopic Assistance (ICD-10-PCS; 2017-12-25)
PROC: 0JQC0ZZ Repair Pelvic Region Subcutaneous Tissue and Fascia, Open Approach (ICD-10-PCS; 2017-12-25)
PROC: 0JQC0ZZ Repair Pelvic Region Subcutaneous Tissue and Fascia, Open Approach (ICD-10-PCS; 2017-12-25)
PROC: 0USG7ZZ Reposition Vagina, Via Natural or Artificial Opening (ICD-10-PCS; 2017-12-25)
PROC: 8E0WXY8 Suture Removal from Trunk Region (ICD-10-PCS; 2017-12-25)
DX: N81.3 Complete uterovaginal prolapse (principal); N99.81 Other intraoperative complications of genitourinary system; G89.18 Other acute postprocedural pain; N99.89 Other postprocedural complications and disorders of genitourinary system; N30.90 Cystitis, unspecified without hematuria; B95.2 Enterococcus as the cause of diseases classified elsewhere; Y83.8 Other surgical procedures as the cause of abnormal reaction of the patient, or of later complication, without mention of misadventure at the time of the procedure; Y92.234 Operating room of hospital as the place of occurrence of the external cause; Z87.891 Personal history of nicotine dependence
CPT/HCPCS: 57260; 57282; 58552; G0378; 36415; 71046; 74176; 80048; 80053; 81001; 81025; 85025; 85027; 87077; 87086; 87181; 88305

== ENCOUNTER 2017-12-28 09:17 | Emergency (ER) | payer MEDICAID ==
[2017-12-28] MEDS ORDERED: methylPREDNISolone SUCCINATE 125 MG/2 ML VIAL IVP STA (09:49)
[2017-12-28] MEDS ORDERED: diphenhydrAMINE INJ 50 MG/ML VIAL IVP STA (09:49)
--- NOTE | 2017-12-28 09:51 | ED Physician Documentation ---
ED Addendum - Addendum Addendum: 12/28/17 09:50 I took a call from Dr. Kaylee Fernández prior to arrival. Briefly this is a 47- year-old woman with recent hysterectomy with repair of a blocked ureter. While in the hospital developed a fever and a urinalysis positive for enterococcus. Was discharged yesterday on doxycycline and Flagyl but now has a temperature of 102 at home and was sent in and there is a concern for either intra-abdominal abscess or UTI with blocked ureter and Dr. Fernández requested a CT. IV contrast will be best for this. She does have a history of IV contrast allergy but has been successfully pretreated. I put in triage orders including the labs, CT, and Solu-Medrol and Benadryl IV for pretreatment before IV contrast. I did not personally see the patient.
[2017-12-28 10:17] LABS: BASOPHILS % (AUTO) 0.4 %; EOSINOPHILS # (AUTO) 0.3 10^3/uL (0.0-0.7); EOSINOPHILS % (AUTO) 4.4 %; HGB - HEMOGLOBIN 10.7 g/dL (12.0-16.0); LYMPHOCYTES # (AUTO) 0.8 10^3/uL (1.5-3.5); LYMPHOCYTES % (AUTO) 10.8 %; MEAN CORPUSCULAR HEMOGLOBIN 30.5 pg (27.0-31.0); MEAN CORPUSCULAR HGB CONC 34.3 g/dL (32.0-36.0); MEAN CORPUSCULAR VOLUME 88.8 fL (81.0-99.0); MEAN PLATELET VOLUME 8.1 fL (7.9-10.8); MONOCYTES # (AUTO) 0.6 10^3/uL (0.0-1.0); MONOCYTES % (AUTO) 7.9 %; NEUTROPHILS # (AUTO) 5.6 10^3/uL (1.5-6.6); NEUTROPHILS % (AUTO) 76.5 %; PLT - PLATELET COUNT 314 10^3/uL (130-450); RED BLOOD COUNT 3.52 10^6/uL (4.20-5.40); RED CELL DISTRIBUTION WIDTH 13.3 % (12.0-15.0); WHITE BLOOD COUNT 7.3 x10^3/uL (4.8-10.8)
[2017-12-28] MEDS ORDERED: IOPAMIDOL-300 100 ML VIAL ONE (10:22)
[2017-12-28 10:23] LABS: ALBUMIN 3.6 g/dL (3.2-5.5); BILIRUBIN,TOTAL 0.7 mg/dL (0.2-1.0); CALCIUM 9.1 mg/dL (8.5-10.3); CREATININE 0.7 mg/dL (0.4-1.0); TOTAL PROTEIN 7.1 g/dL (6.7-8.2)
[2017-12-28] MEDS ORDERED: SODIUM CHLORIDE 0.9% 1,000 ML IV ONE (10:45)
[2017-12-28] MEDS ORDERED: ONDANSETRON 4 MG/2 ML VIAL IVP STA (10:45)
[2017-12-28] MEDS ORDERED: KETOROLAC 15 MG/ML VIAL IVP STA (10:46)
[2017-12-28] MEDS ORDERED: cefTRIAXone 1 GM in SODIUM CHLORIDE 0.9% MINIBAG 100 ML IV STA (10:46)
[2017-12-28 10:55] LABS: BILIRUBIN,URINE NEGATIVE (NEGATIVE); GLUCOSE, URINE (UA) NEGATIVE (NEGATIVE); KETONES,URINE (UA) NEGATIVE (NEGATIVE); LEUKOCYTE ESTERASE, URINE TRACE (NEGATIVE); NITRITE,URINE NEGATIVE (NEGATIVE); OCCULT BLOOD,URINE MODERATE (NEGATIVE); PROTEIN,URINE NEGATIVE (NEGATIVE); UROBILINOGEN,URINE 0.2 (NORMAL) E.U./dL (NORMAL)
[2017-12-28 10:59] LABS: CLARITY,URINE CLEAR (CLEAR)
[2017-12-28 11:23] LABS: BACTERIA,URINE Few /HPF (None Seen); RBC,URINE 0-5 /HPF (0-5); SQUAMOUS EPITHELIAL CELL,UR FEW Squamous (<= Few)
--- NOTE | 2017-12-28 12:13 | CT Report ---
Reason: IV only, post op fever, ?abscess or hydronephrosis Procedure Date: 12/28/2017 Accession Number: [id number] / [id number] Procedure: CT - Abdomen/Pelvis W/ CPT Code: FULL RESULT: EXAM: CT ABDOMEN AND PELVIS EXAM DATE: 12/28/2017 11:47 AM. CLINICAL HISTORY: Post op fever. ?abscess or hydronephrosis. COMPARISONS: ABDOMEN/PELVIS W/O 12/23/2017 11:34 AM. TECHNIQUE: Routine helical CT imaging was performed through the abdomen and pelvis. IV contrast: ISOVUE 300 100mL. Enteric contrast: No. Reconstructions: Coronal and sagittal. In accordance with CT protocol optimization, one or more of the following dose reduction techniques were utilized for this exam: automated exposure control, adjustment of mA and/or KV based on patient size, or use of iterative reconstructive technique. FINDINGS: Lung Bases: Unremarkable. Liver: No evidence of parenchymal abnormality. Gallbladder/Bile Ducts: The gallbladder is distended. Mild intrahepatic biliary ductal dilatation. Spleen: Normal. Pancreas: Normal. Adrenal Glands: Normal. Kidneys: Mild to moderate hydronephrosis and hydroureter bilaterally. Peritoneal Cavity/Bowel: No ascites or pneumoperitoneum. No evidence of small bowel obstruction. The stomach is decompressed. Moderate to large stool burden has increased compared to prior. No evidence of abscess, although evaluation is suboptimal secondary to minimal intra-abdominal fat. 16 mm well-circumscribed ovoid fat density in the left paramedian pelvis has not significantly changed compared to priors (axial image 50); this may reflect a lipoma, the precise anatomic location is difficult to ascertain. The appendix appears normal. Pelvic Organs: Moderate to marked distention of the urinary bladder. The uterus appears surgically absent. Vasculature: No aneurysms or other significant abnormality. Bones: No significant abnormality. Other: None. IMPRESSION: 1. Bilateral [id number]-[id number] hydronephrosis and hydroureter, likely secondary to bladder distention. 2. Moderate to large stool burden, increased compared to prior. 3. No ascites, pneumoperitoneum, small bowel obstruction, or evidence of abscess. RADIA
[2017-12-28] MEDS ORDERED: IOPAMIDOL-300 100 ML VIAL IVP ONE (12:56)
[2017-12-28] MEDS ORDERED: MORPHINE 10 MG/ML VIAL IVP STA (14:44)
[2017-12-28] MEDS ORDERED: OXYBUTYNIN 5MG TABLET PO STA (14:44)
--- NOTE | 2017-12-28 15:31 | ED Physician Documentation ---
PD HPI ABD PAIN - Stated complaint Stated Complaint: FEVER - Chief complaint Chief Complaint: Fever - History obtained from History obtained from: Patient - History of Present Illness Timing - onset: How many days ago (2) Timing - details: Gradual onset, Still present Quality: Cramping, Aching, Pain Location: Suprapubic Radiation: No: Lower back, Left flank, Right flank Improved by: Other (urinating, though it does hurt while urinating at the time.) . No: Eating Worsened by: No: Eating Associated symptoms: Nausea, Vomiting, Dysuria. No: Fever, Hematemesis, Diarrhea, Constipation Similar symptoms before: Has not had sx before Recently seen: Surgery (pelvic floor repair 3 days ago and discharged yesterday. Had some dysuria and was Rx abx for possible UTI. Having increased lower abd pain and fullness and urinary frequency. Called [facility] office and referred to ED for evaluation.) Review of Systems Constitutional: reports: Fever (subjective last night). denies: Chills, Myalgias Nose: denies: Rhinorrhea / runny nose, Congestion Throat: denies: Sore throat Respiratory: denies: Cough GI: reports: Abdominal Pain, Nausea, Vomiting (today). denies: Constipation, Diarrhea Skin: denies: Rash, Lesions Musculoskeletal: denies: Back pain Neurologic: denies: Generalized weakness, Focal weakness, Numbness, Near syncope PD PAST MEDICAL HISTORY - Past Medical History Cardiovascular: None Respiratory: None Neuro: None Endocrine/Autoimmune: None GI: None : None, Indwelling catheter HEENT: None Psych: None Musculoskeletal: None Derm: None - Past Surgical History Past Surgical History: Yes Ortho: Carpal Tunnel surgery, Other - Present Medications Home Medications: Ambulatory Orders Medication Instructions Recorded Confirmed Cephalexin [Keflex] 500 mg PO TID #21 capsule 12/28/17 Ondansetron Odt [Zofran] 4 mg TL Q6H PRN #15 tablet 12/28/17 Oxybutynin [Ditropan] 5 mg PO BID #10 tablet 12/28/17 - Allergies Allergies/Adverse Reactions: Allergies Allergy/AdvReac Type Severity Reaction Status Date / Time carbamazepine [From Tegretol] Allergy Unknown Rash Verified 12/22/17 08:03 iodine Allergy Unknown Hives Verified 12/22/17 08:03 prochlorperazine edisylate * Allergy Unknown seizure Verified 12/22/17 08:03 [From Compazine] prochlorperazine maleate * Allergy Unknown unknown Verified 12/22/17 08:03 [From Compazine] strawberry [[place]] Allergy Unknown Hives Verified 12/22/17 08:03 shellfish Allergy Unknown Hives Uncoded 03/22/16 09:37 - Social History Does the pt smoke?: No Smoking Status: Never smoker Does the pt drink ETOH?: No Does the pt have substance abuse?: No - Immunizations Immunizations are current?: No Immunizations: TDAP >10years/unknown, Other immun not current - POLST Patient has POLST: No PD ED PE NORMAL - Vitals Vital signs reviewed: Yes - General General: Alert and oriented X 3, Well developed/nourished - HEENT HEENT: Ears normal, Moist mucous membranes, Pharynx benign - Neck Neck: Supple, no meningeal sign, No adenopathy - Cardiac Cardiac: RRR, No murmur - Respiratory Respiratory: Clear bilaterally - Abdomen Abdomen: Normal bowel sounds, Soft, No organomegaly, Other (very distended suprapubic area. Tender there. No rash nor redness. Incisions appear healing okay.) - Female Female : Deferred - Rectal Rectal: Deferred - Derm Derm: Normal color, Warm and dry Results - Vitals Vitals: Oxygen O2 Source Room air - Labs Labs: Microbiology 12/28/17 10:21 Blood Culture - Preliminary Blood - Right Iv-Start NO GROWTH AFTER 2 DAYS 12/28/17 10:05 Blood Culture - Preliminary Blood - Left Arm NO GROWTH AFTER 2 DAYS 12/28/17 10:05 Urine Culture - Final Urine,Clean Catch No growth Laboratory Tests 12/28/17 12/28/17 12/28/17 10:05 10:05 10:05 WBC 7.3 RBC 3.52 L Hgb 10.7 L Hct 31.3 L MCV 88.8 MCH 30.5 MCHC 34.3 RDW 13.3 Plt Count 314 MPV 8.1 Neut # (Auto) 5.6 Lymph # (Auto) 0.8 L [place] # (Auto) 0.6 Eos # (Auto) 0.3 Baso # (Auto) 0.0 Absolute Nucleated RBC 0.01 Nucleated RBC % 0.1 Sodium 136 Potassium 3.9 Chloride 98 L Carbon Dioxide 30 Anion Gap 8.0 BUN 8 Creatinine 0.7 Estimated GFR (MDRD) 89 Glucose 108 H Lactic Acid 0.4 L Calcium 9.1 Total Bilirubin 0.7 AST 20 ALT 20 Alkaline Phosphatase 98 Total Protein 7.1 Albumin 3.6 Globulin 3.5 Albumin/Globulin Ratio 1.0 Lipase 25 Urine Color Urine Clarity Urine pH Ur Specific [place] Urine Protein Urine Glucose (UA) Urine Ketones Urine Occult Blood Urine Nitrite Urine Bilirubin Urine Urobilinogen Ur Leukocyte Esterase Urine RBC Urine WBC Ur Squamous Epith Cells Urine Bacteria Ur Microscopic Review Urine Culture Comments 12/28/17 10:05 WBC RBC Hgb Hct MCV MCH MCHC RDW Plt Count MPV Neut # (Auto) Lymph # (Auto) [place] # (Auto) Eos # (Auto) Baso # (Auto) Absolute Nucleated RBC Nucleated RBC % Sodium Potassium Chloride Carbon Dioxide Anion Gap BUN Creatinine Estimated GFR (MDRD) Glucose Lactic Acid Calcium Total Bilirubin AST ALT Alkaline Phosphatase Total Protein Albumin Globulin Albumin/Globulin Ratio Lipase Urine Color DARK YELLOW Urine Clarity CLEAR Urine pH 8.0 H Ur Specific [place] 1.015 Urine Protein NEGATIVE Urine Glucose (UA) NEGATIVE Urine Ketones NEGATIVE Urine Occult Blood MODERATE H Urine Nitrite NEGATIVE Urine Bilirubin NEGATIVE Urine Urobilinogen 0.2 (NORMAL) Ur Leukocyte Esterase TRACE H Urine RBC 0-5 Urine WBC 6-10 H Ur Squamous Epith Cells FEW Squamous Urine Bacteria Few Ur Microscopic Review INDICATED Urine Culture Comments INDICATED PD MEDICAL DECISION MAKING - ED course Complexity details: reviewed results (CT showing large bladder with hydronephrosis. ), considered differential (very full bladder area versus focal obstruction pattern.), d/w patient, d/w sr solutions consultant ([facility] mechatronics technologist, will see patient in next couple days. ) - Sepsis Event Vital Signs: Oxygen O2 Source Room air Departure - Departure Disposition: Home, Self Care Clinical Impression: Acute urinary retention UTI (urinary tract infection) Qualifiers: Urinary tract infection type: acute cystitis Hematuria presence: without hematuria Qualified Code(s): N30.00 - Acute cystitis without hematuria Condition: Stable Record reviewed to determine appropriate education?: Yes Instructions: ED Catheter Care [place], ED Retention Urinary Female, ED UTI Cystitis Female Follow-Up: Isaac Dooley MD [Provider Admit Priv/Credential] - Prescriptions: Cephalexin [Keflex] 500 mg PO TID #21 capsule Ondansetron Odt [Zofran] 4 mg TL Q6H PRN #15 tablet PRN Reason: Nausea / Vomiting Oxybutynin [Ditropan] 5 mg PO BID #10 tablet Comments: Drink lots of fluids. Your bladder and abdominal pain should improve with the catheter. There may be some urine bladder spasms as the bladder gets back into more toned shape. You can use Ditropan if needed for spasms. Ondansetron if needed for nausea. I did not see an antibiotic on your discharge summary. There was Celebrex for inflammation. This might be causing your upset stomach. You could stop the Celebrex. Use cephalexin 3 times a day for a week for infection. Follow-up with the gynecology office in the next 2-3 days. Discharge Date/Time: 12/28/17 16:54
[2017-12-28 16:56] VITALS: BP 105/74
== END 2017-12-28 16:54 | disposition home or self-care (01) ==
LOC: ED 09:17
DX: R33.9 Retention of urine, unspecified (principal); N30.00 Acute cystitis without hematuria; N13.30 Unspecified hydronephrosis
CPT/HCPCS: 36415; 51702; 74177; 80053; 81001; 83605; 83690; 85025; 87040; 87086; 96361; 96365; 96375; 99283; A9270; J1200; Q9967; 81003

== ENCOUNTER 2018-09-26 18:19 | Emergency (ER) | payer OTHER, MEDICAID ==
[2018-09-26] MEDS ORDERED: HYDROcod/ACETAM 5/325 MG TABLET PO STA (18:57)
--- NOTE | 2018-09-26 18:57 | ED Physician Documentation ---
PD HPI UPPER EXT INJURY - Stated complaint Stated Complaint: LT HAND INJURY - Chief complaint Chief Complaint: Trauma Ext - History obtained from History obtained from: Patient - History of Present Illness Location: Left, Hand Type of injury: Fall, Crush Where injury occurred: Work Timing - onset: Today (Just prior to arrival) Timing - details: Abrupt onset Improved by: Nothing Worsened by: Moving Recently seen: Not recently seen - Additonal information Additional information: This is a 47-year-old woman who presents with complaints that she was at work and she was walking she slipped and managed to hit the fire extinguisher off the wall is up about 3 or 4 feet and then as she fell fire extinguisher fell landing on her left hand and crushing it against the floor at work. She took 2 ibuprofen prior to arrival. She is not certain when her last tetanus vaccine was. The fingers feel "weird".Eyes other injury in the fall. Review of Systems Skin: reports: Laceration (s) Musculoskeletal: reports: Extremity pain Neurologic: reports: Numbness PD PAST MEDICAL HISTORY - Past Medical History Cardiovascular: None Respiratory: None Neuro: None Endocrine/Autoimmune: None GI: None : None, Indwelling catheter HEENT: None Psych: None Musculoskeletal: None Derm: None - Past Surgical History Past Surgical History: Yes Ortho: Carpal Tunnel surgery, Other - Allergies Allergies/Adverse Reactions: Allergies Allergy/AdvReac Type Severity Reaction Status Date / Time carbamazepine [From Tegretol] Allergy Unknown Rash Verified 12/22/17 08:03 iodine Allergy Unknown Hives Verified 12/22/17 08:03 prochlorperazine edisylate * Allergy Unknown seizure Verified 12/22/17 08:03 [From Compazine] prochlorperazine maleate * Allergy Unknown unknown Verified 12/22/17 08:03 [From Compazine] strawberry [[place]] Allergy Unknown Hives Verified 12/22/17 08:03 shellfish Allergy Unknown Hives Uncoded 03/22/16 09:37 - Social History Does the pt smoke?: No Smoking Status: Never smoker Does the pt drink ETOH?: No Does the pt have substance abuse?: No - Immunizations Immunizations are current?: No Immunizations: TDAP >10years/unknown, Other immun not current - POLST Patient has POLST: No PD ED PE NORMAL - Vitals Vital signs reviewed: Yes - General General: Alert and oriented X 3, No acute distress, Well developed/nourished - HEENT HEENT: Atraumatic - Derm Derm: Other (Laceration of less than half a centimeter over the dorsal aspect of the left hand over the second metacarpal.) - Extremities Extremities: Other (Significant bruising and swelling to the left hand dorsally. The left thumb is swollen.) - Neuro Neuro: Alert and oriented X 3, Other (Two-point discrimination is intact in the Thumb, index and middle fingers.) - Psych Psych: Normal mood, Normal affect Results - Vitals Vitals: Vital Signs - 24 hr 09/26/18 09/26/18 18:24 21:39 Temperature 36.6 C Heart Rate 88 82 Respiratory 16 14 Rate Blood Pressure 125/79 110/82 H O2 Saturation 100 98 Oxygen O2 Source Room air - Labs Labs: Laboratory Tests 09/26/18 09/26/18 19:30 19:30 WBC 4.8 RBC 3.86 L Hgb 11.3 L Hct 33.1 L MCV 85.6 MCH 29.1 MCHC 34.0 RDW 14.8 Plt Count 244 MPV 8.3 Neut # (Auto) 3.1 Lymph # (Auto) 1.0 L [place] # (Auto) 0.5 Eos # (Auto) 0.2 Baso # (Auto) 0.1 Absolute Nucleated RBC 0.00 Nucleated RBC % 0.0 Sodium 135 Potassium 3.9 Chloride 103 Carbon Dioxide 23 Anion Gap 9.0 BUN 16 Creatinine 0.7 Estimated GFR (MDRD) 89 Glucose 99 Calcium 8.8 - Rads (name of study) L hand Radiology: EMP read indepedently (Displaced fx shaft 2nd MC, comminuted fx shaft 3rd MC, Fx thumb prox phalanx ), EMP read contemporaneously L wrist Radiology: EMP read indepedently (Neg fx), EMP read contemporaneously PD MEDICAL DECISION MAKING - ED course Complexity details: d/w patient, d/w family, d/w retail sales consultant ED course: Case was discussed with the orthopedist on-call who felt this was too complicated open fracture of the hand for him to deal with here. This was discussed with the patient and she will be transferred to [facility] to Dr. Nicolette Simons. Patient was placed in a cock-up splint here. She was initially given hydrocodone tablet but then once I realize the significance of the injury IV was started she was given a gram of Ancef IV and 2 of morphine. Her significant other is going to take her to [facility] by private vehicle. She was requested to remain n.p.o. and to go directly there for admission. Departure - Departure Disposition: 02 Transfer Acute Care Hosp Clinical Impression: Fracture of left hand, Fracture of thumb, left, closed Condition: Good Instructions: ED Fx Hand Open Comments: Do not eat or drink anything. Keep your left arm elevated. Go directly to the emergency department at [facility]. Discharge Date/Time: 09/26/18 22:05
[2018-09-26] MEDS ORDERED: ceFAZolin 1 GM in SODIUM CHLORIDE 0.9% MINIBAG 100 ML IV STA (19:11)
--- NOTE | 2018-09-26 19:25 | XRAY Report ---
Reason: pain; trauma Procedure Date: 09/26/2018 Accession Number: [id number] / [id number] Procedure: XR - Wrist 3 View LT CPT Code: FULL RESULT: EXAM: LEFT WRIST RADIOGRAPHY EXAM DATE: 09/26/2018 07:07 PM. CLINICAL HISTORY: Pain; trauma. COMPARISON: None. TECHNIQUE: 3 views. FINDINGS: Bones: See separate report for multiple fractures of the hand. Bones of the wrist appear to be intact. Small smooth ossicle adjacent to ulnar styloid process. Joints: Mild degenerative changes. Soft Tissues: Mild soft tissue swelling. IMPRESSION: Soft tissue swelling. RADIA
--- NOTE | 2018-09-26 19:32 | XRAY Report ---
Reason: trauma; pain Procedure Date: 09/26/2018 Accession Number: [id number] / [id number] Procedure: XR - Hand 3 View LT CPT Code: FULL RESULT: EXAM: LEFT HAND RADIOGRAPHY EXAM DATE: 09/26/2018 07:07 PM. CLINICAL HISTORY: Trauma; pain. COMPARISON: None. TECHNIQUE: 3 views. FINDINGS: Bones: Transverse fracture through first proximal phalangeal midshaft with apex volar angulation and 80% apposition. Transverse fracture through the second metacarpal midshaft with apex radial angulation and about 5% apposition on lateral view. The V-shaped comminuted fracture of the mid to distal portions of the third metacarpal with prominent comminution, but nearly complete apposition of major fragments. Otherwise intact. Joints: Mild degenerative changes. Soft Tissues: Soft tissue swelling. IMPRESSION: First proximal phalangeal and second and third metacarpal fractures. RADIA
[2018-09-26 19:53] LABS: BASOPHILS # (AUTO) 0.1 10^3/uL (0.0-0.1); BASOPHILS % (AUTO) 1.2 %; EOSINOPHILS # (AUTO) 0.2 10^3/uL (0.0-0.7); EOSINOPHILS % (AUTO) 4.8 %; HGB - HEMOGLOBIN 11.3 g/dL (12.0-16.0); LYMPHOCYTES % (AUTO) 19.7 %; MEAN CORPUSCULAR HEMOGLOBIN 29.1 pg (27.0-31.0); MEAN CORPUSCULAR VOLUME 85.6 fL (81.0-99.0); MEAN PLATELET VOLUME 8.3 fL (7.9-10.8); MONOCYTES # (AUTO) 0.5 10^3/uL (0.0-1.0); MONOCYTES % (AUTO) 9.5 %; NEUTROPHILS # (AUTO) 3.1 10^3/uL (1.5-6.6); NEUTROPHILS % (AUTO) 64.8 %; PLT - PLATELET COUNT 244 10^3/uL (130-450); RED BLOOD COUNT 3.86 10^6/uL (4.20-5.40); RED CELL DISTRIBUTION WIDTH 14.8 % (12.0-15.0); WHITE BLOOD COUNT 4.8 x10^3/uL (4.8-10.8)
[2018-09-26] MEDS ORDERED: MORPHINE 2 MG/ML CARPUJECT IVP STA ×2 (19:58→21:41)
[2018-09-26] MEDS ORDERED: MORPHINE 10 MG/ML VIAL IVP STA (19:58)
[2018-09-26 20:01] LABS: CALCIUM 8.8 mg/dL (8.5-10.3); CREATININE 0.7 mg/dL (0.4-1.0)
[2018-09-26 21:40] VITALS: BP 110/82
== END 2018-09-26 22:05 | disposition short-term general hospital (02) ==
LOC: ED 18:19
DX: S62.502A Fracture of unspecified phalanx of left thumb, initial encounter for closed fracture (principal); S62.621B Displaced fracture of middle phalanx of left index finger, initial encounter for open fracture; S62.623A Displaced fracture of middle phalanx of left middle finger, initial encounter for closed fracture; W01.0XXA Fall on same level from slipping, tripping and stumbling without subsequent striking against object, initial encounter; W20.8XXA Other cause of strike by thrown, projected or falling object, initial encounter; Y93.01 Activity, walking, marching and hiking; Y92.89 Other specified places as the place of occurrence of the external cause; Y99.0 Civilian activity done for income or pay
CPT/HCPCS: 1040M; 36415; 73110; 73130; 80048; 85025; 96365; 96375; 96376; 99283; A9270; 99284

== ENCOUNTER 2020-01-30 18:06 | Emergency (ER) | payer MEDICAID ==
--- NOTE | 2020-01-30 19:14 | ED Physician Documentation ---
PD HPI WOUND RECHECK - Stated complaint Stated Complaint: POST OP LEFT WRIST OOZE - Chief complaint Chief Complaint: Wound - Histroy obtained from History obtained from: Patient - Additional information Additional information: Patient is a 49-year-old female who is 3 weeks status post left hand surgery by Dr. Solitario at [facility].She has not been back for a wound check she has had her Steri-Strips in place when she removed her Steri-Strips today she noticed a open wound on her left hand and some mild pain denies fevers. Review of Systems Constitutional: reports: Reviewed and negative Eyes: reports: Reviewed and negative Ears: reports: Reviewed and negative Nose: reports: Reviewed and negative Throat: reports: Reviewed and negative Cardiac: reports: Reviewed and negative Respiratory: reports: Reviewed and negative GI: reports: Reviewed and negative : reports: Reviewed and negative Skin: reports: Lesions, Other (Postop wound postop wound drainage) Musculoskeletal: reports: Reviewed and negative Neurologic: reports: Reviewed and negative Psychiatric: reports: Reviewed and negative Endocrine: reports: Reviewed and negative Immunocompromised: reports: Reviewed and negative PD PAST MEDICAL HISTORY - Past Medical History Past Medical History: Yes Cardiovascular: None Respiratory: None Neuro: None Endocrine/Autoimmune: None GI: None : None, Indwelling catheter HEENT: None Psych: None Musculoskeletal: None Derm: None - Past Surgical History Past Surgical History: Yes Ortho: Carpal Tunnel surgery, Other - Present Medications Home Medications: Ambulatory Orders Medication Instructions Recorded Confirmed Doxycycline Monohydrate 100 mg PO BID 7 Days #14 tablet 01/30/20 - Allergies Allergies/Adverse Reactions: Allergies Allergy/AdvReac Type Severity Reaction Status Date / Time carbamazepine [From Tegretol] Allergy Unknown Rash Verified 12/22/17 08:03 iodine Allergy Unknown Hives Verified 12/22/17 08:03 prochlorperazine edisylate * Allergy Unknown seizure Verified 12/22/17 08:03 [From Compazine] prochlorperazine maleate * Allergy Unknown unknown Verified 12/22/17 08:03 [From Compazine] strawberry [[place]] Allergy Unknown Hives Verified 12/22/17 08:03 shellfish Allergy Unknown Hives Uncoded 03/22/16 09:37 - Social History Does the pt smoke?: No Smoking Status: Never smoker Does the pt drink ETOH?: No Does the pt have substance abuse?: No - Immunizations Immunizations are current?: No Immunizations: TDAP >10years/unknown, Other immun not current - POLST Patient has POLST: No PD ED PE NORMAL - Vitals Vital signs reviewed: Yes - General General: Alert and oriented X 3, No acute distress - HEENT HEENT: PERRL - Neck Neck: Supple, no meningeal sign - Cardiac Cardiac: RRR, No murmur - Respiratory Respiratory: Clear bilaterally - Abdomen Abdomen: Normal bowel sounds, Soft, Non tender, Non distended - Derm Derm: Warm and dry - Extremities Extremities: No deformity - Neuro Neuro: Alert and oriented X 3 - Psych Psych: Normal mood, Normal affect - Free text exam Free text exam: Musculoskeletal: The left hand has a dorsal open wound that is approximately 3 cm x 5 mm there is mild erythema and granulation tissue present compartments are soft neurovascular intact sensations intact light touch radial pulses are 2+ and symmetric. No crepitus fluctuance or induration no discharge noted, No streaking. Derm: There is a 3 cm x 5 mm open wound over the dorsal aspect of the left hand with granulation tissue present, radian, median, ulnar motor and sensory exam are tach. Results - Vitals Vitals: Vital Signs - 24 hr 01/30/20 01/30/20 01/30/20 18:18 18:54 20:44 Temperature 36.8 C 36.8 C 36.8 C Heart Rate 84 83 82 Respiratory 18 18 18 Rate Blood Pressure 120/58 L 120/60 120/62 O2 Saturation 99 99 99 Oxygen O2 Source Room air PD MEDICAL DECISION MAKING - ED course ED course: 49-year-old female 3 weeks status post left hand surgery from previous crush injury she has had multiple surgeries on her hand her hand surgeons Dr. Solitario at [facility]. X-ray shows no acute process patient had bacitracin applied to the wound as well as a bandage and was started empirically on doxycycline attemp janice to contact the hand surgeon at [facility] but was unsuccessful. Patient will call her hand surgeon tomorrow to schedule a follow-up appointment. Departure - Departure Disposition: 01 Home, Self Care Clinical Impression: Wound disruption, post-op, skin Qualifiers: Encounter type: initial encounter Qualified Code(s): T81.31XA - Disruption of external operation (surgical) wound, not elsewhere classified, initial encounter Condition: Stable Instructions: ED Wound Care Follow-Up: your, hand surgeon [Other] Prescriptions: Doxycycline Monohydrate 100 mg PO BID 7 Days #14 tablet Comments: call your hand surgeon tomorrow. keep wound protected with bandage. apply a topical antibiotic such as neosporin 2 times daily. take antibiotics as directed. Discharge Date/Time: 01/30/20 20:44
[2020-01-30] MEDS ORDERED: BACITRACIN ZINC OINT 1 PACKET TOP STA (19:51)
[2020-01-30] MEDS ORDERED: DOXYCYCLINE 100 MG TABLET PO STA (19:51)
--- NOTE | 2020-01-30 20:19 | XRAY Report ---
PROCEDURE: Hand 3 View LT INDICATIONS: post op pain TECHNIQUE: 4 views of the hand(s) acquired. COMPARISON: Left hand and wrist radiographs dated 09/26/2018 FINDINGS: Bones: Postsurgical changes are seen with a metallic plate and screw construct at the second metacarp al fixating a transverse fracture. The metallic hardware is intact. The previously seen comminuted fr acture of the third metacarpal appears healed. A chronic ossification is seen adjacent to the tip of the ulnar styloid. Degenerative changes are noted at the first carpometacarpal joint. Soft tissues: No suspicious soft tissue calcifications. IMPRESSION: Postsurgical changes from fixation of a second metacarpal shaft fracture with metallic plate and scre w construct. No acute hardware complication is seen. Reviewed by: Rohan Wright MD on 01/30/2020 8:17 PM PDT Approved by: Rohan Wright MD on 01/30/2020 8:17 PM PDT Station ID: [id number]
[2020-01-30 20:45] VITALS: BP 120/62
== END 2020-01-30 20:44 | disposition home or self-care (01) ==
LOC: ED 18:06
DX: T81.31XA Disruption of external operation (surgical) wound, not elsewhere classified, initial encounter (principal)
CPT/HCPCS: 73130; 99283; A9270

== ENCOUNTER 2021-03-09 11:14 | Emergency (ER) | payer MEDICAID ==
[2021-03-09 11:23] VITALS: BP 145/69
--- NOTE | 2021-03-09 12:18 | ED Physician Documentation ---
History of Present Illness - Stated complaint Stated Complaint: RT SIDE RIB PAIN - Chief complaint Chief Complaint: General - History obtained from History obtained from: Patient - Additonal information Additional information: She was sick with a cough and a sore throat for about a week, finished up 5 to 6 days ago. About 4 days ago without specific trauma she developed sharp rib pain on the right side. Is worse with deep breathing and movement. There is no current cough. She denies pedal edema or calf pain. No recent travel. No history of DVT or PE. No hemoptysis. Review of Systems Constitutional: denies: Fever, Chills Cardiac: denies: Palpitations Respiratory: denies: Cough, Hemoptysis, Wheezing PD PAST MEDICAL HISTORY - Past Medical History Past Medical History: Yes Cardiovascular: None Respiratory: None Neuro: None Endocrine/Autoimmune: None GI: None TRAVELING BUYER: None : Indwelling catheter HEENT: None Psych: None Musculoskeletal: None Derm: None - Past Surgical History Past Surgical History: Yes Ortho: Carpal Tunnel surgery, Other - Present Medications Home Medications: Ambulatory Orders Medication Instructions Recorded Confirmed Doxycycline Monohydrate 100 mg PO BID 7 Days #14 tablet 01/30/20 - Allergies Allergies/Adverse Reactions: Allergies Allergy/AdvReac Type Severity Reaction Status Date / Time carbamazepine [From Tegretol] Allergy Unknown Rash Verified 03/09/21 11:23 iodine Allergy Unknown Hives Verified 03/09/21 11:23 prochlorperazine edisylate * Allergy Unknown seizure Verified 03/09/21 11:23 [From Compazine] prochlorperazine maleate * Allergy Unknown unknown Verified 03/09/21 11:23 [From Compazine] strawberry [Shiro] Allergy Unknown Hives Verified 03/09/21 11:23 shellfish Allergy Unknown Hives Uncoded 03/09/21 11:23 - Social History Does the pt smoke?: No Smoking Status: Never smoker Does the pt drink ETOH?: No Does the pt have substance abuse?: No - Immunizations Immunizations are current?: No Immunizations: TDAP >10years/unknown, Other immun not current - POLST Patient has POLST: No PD ED PE NORMAL - Vitals Vital signs reviewed: Yes - General General: Alert and oriented X 3, No acute distress - HEENT HEENT: PERRL, EOMI - Neck Neck: Supple, no meningeal sign, No bony TTP - Cardiac Cardiac: RRR, No murmur - Respiratory Respiratory: No respiratory distress, Clear bilaterally, Other (Reproducible rib tenderness around ribs 7 or though, no rash or deformity.) - Abdomen Abdomen: Soft, Non tender - Extremities Extremities: No edema, No calf tenderness / cord - Neuro Neuro: Alert and oriented X 3, Normal speech - Psych Psych: Normal mood, Normal affect Results - Vitals Vitals: Vital Signs - 24 hr 03/09/21 11:20 Temperature 36.6 C Heart Rate 88 Respiratory 15 Rate Blood Pressure 145/69 H O2 Saturation 97 Oxygen O2 Source Room air - Labs Labs: Laboratory Tests 03/09/21 12:24 D-Dimer 213.8 PD MEDICAL DECISION MAKING - ED course ED course: 50-year-old woman with atraumatic pleuritic right chest pain that sounds musculoskeletal. That said she is PE RC positive due to age. Departure - Departure Disposition: 01 Home, Self Care Clinical Impression: Acute chest wall pain Condition: Good Record reviewed to determine appropriate education?: Yes Instructions: ED Strain Chest Wall Comments: Tylenol and/or ibuprofen as needed for pain. Return for new or worsening symptoms. Follow-up with your doctor in a week if not improved.
--- NOTE | 2021-03-09 12:40 | XRAY Report ---
PROCEDURE: Ribs w/PA Chest RT, x-ray INDICATIONS: pain TECHNIQUE: 2 views of the right ribs were acquired, along with a single view chest. COMPARISON: None FINDINGS: Surgical changes and devices: None. Bones and chest wall: No fractures or dislocations. No suspicious bony lesions. Overlying soft tis sues appear unremarkable. Lungs and pleura: No pleural effusions or pneumothorax. Lungs appear clear. Mediastinum: Mediastinal contours appear normal. Heart size is normal. IMPRESSION: No acute cardiopulmonary findings No rib fracture or pneumothorax. Reviewed by: Lazarus Zhong MD on 03/09/2021 11:38 AM [facility] Approved by: Lazarus Zhong MD on 03/09/2021 11:38 AM [facility]UST Station ID: [id number]
== END 2021-03-09 12:59 | disposition home or self-care (01) ==
LOC: ED 11:14
DX: R07.89 Other chest pain (principal)
CPT/HCPCS: 36415; 85379; 99282; 99284

== ENCOUNTER 2022-08-28 08:00 | Outpatient (CLI) | payer MEDICAID ==
[2022-08-28 15:50] LABS: BILIRUBIN,URINE NEGATIVE (NEGATIVE); GLUCOSE, URINE (UA) NEGATIVE (NEGATIVE); KETONES,URINE (UA) NEGATIVE (NEGATIVE); LEUKOCYTE ESTERASE, URINE NEGATIVE (NEGATIVE); NITRITE,URINE NEGATIVE (NEGATIVE); OCCULT BLOOD,URINE NEGATIVE (NEGATIVE); PH,URINE 6.5 PH (5.0-7.5); PROTEIN,URINE NEGATIVE (NEGATIVE); UROBILINOGEN,URINE 0.2 (NORMAL) E.U./dL (NORMAL)
[2022-08-28 15:52] LABS: CLARITY,URINE CLEAR (CLEAR)
[2022-08-28 16:03] LABS: BACTERIA,URINE None Seen /HPF (None Seen); RBC,URINE 0-5 /HPF (0-5); SQUAMOUS EPITHELIAL CELL,UR NONE SEEN (<= Few); WBC,URINE 0-3 /HPF (0-5)
== END 2022-08-28 23:59 | disposition home or self-care (01) ==
LOC: LAB 08:00
PROVIDERS: ATTEND Obstetrics & Gynecology
DX: R33.9 Retention of urine, unspecified (principal)
CPT/HCPCS: 81001; 87086